=== PATIENT | female | born 1970 | race Caucasian/White ===

== ENCOUNTER 2017-11-05 03:51 | Inpatient (IN) | payer OTHER ==
[2017-11-05 04:07] VITALS: BMI 26.5
--- NOTE | 2017-11-05 04:23 | DR.GENAD ---
HPI - PCP Primary Care Physician: NFD - Complaint/Symptoms Chief Complaint Doctors Comments: Patient states that she has had constipation for one week. Today she noted blood in stool. She denies fever or vomiting. Chief Complaint:: CONSTIPATION X 1 WEEK, THEN BLOODY STOOLS LAST NIGHT NV Self Treatment fo Chief Complaint: PEPTO BISMOL - Source History Provided: Patient - Mode of Arrival Mode of Arrival: Ambulatory - Timing Onset of Chief Complaint: 11/05/17 PMH - PMH Past Medical History: Yes Past Medical History: Arthritis, Asthma, Diabetes, Migraines, Hypertension Past Surgical History: Yes Surgical History: Appendectomy, , Cholecystectomy, Hysterectomy, Ortho Surgery - Family History History of Family Medical Conditions: Yes Family Medical History: Cancer Family Medical History Comment: FATHER - Social History Does patient currently use any type of tobacco product: No Have you used tobacco products in the last 12 months: No Type of Tobacco Use: None Does any household member use tobacco: No Alcohol Use: None Do you use any recreational Drugs:: No Lives With: Spouse Lives Where: Home - infectious screening In the last 2 months have you had wt loss of >10#?: NO Have you had fever, night sweats or hemotysis?: No Have you traveled outside the country in the last 6 months?: No Isolation: Standard ROS - Review of Systems Eyes: No Symptoms Reported ENTM: No Symptoms Reported Respiratoy: No Symptoms Reported Cardiovascular: No Symptoms Reported Gastrointestinal/Abdominal: No Symptoms Reported Genitourinary: No Symptoms Reported Neurological: No Symptoms Reported Musculoskeletal: No Symptoms Reported Integumentary: No Symptoms Reported Hematologic/Lymphatic: No Symptoms Reported Endocrine: No Symptoms Reported Psychiatric: No Symptoms Reported All Other Systems: Reviewed and Negative PE - Vital Signs Vitals: Temperature 97.6 F Pulse Rate 98 Respiratory Rate 16 Blood Pressure 129/82 O2 Sat by Pulse Oximetry 97 - General Limitations: No Limitations General Appearance: Alert, In No Apparent Distress, Anxious - Head Head Exam: Normal Inspection, Atraumatic - Eyes Eye exam: PERRL, EOMI - ENT ENT Exam: Normal Exam, Normal Oropharynx External Ear Exam: Normal External Inspection TM/Canal Exam: Bilateral Normal Nose Exam: Normal Nose Exam Mouth Exam: Normal Inspection Throat Exam: Normal Inspection - Neck Neck Exam: Normal Inspection - Chest Chest Inspection: Normal Inspection - Respiratory Respiratory Exam: Normal Lung Sounds Bilat Respiratory Exam: Bilateral Clear to Auscultation - Cardiovascular Cardiovascular Exam: Regular Rate, Normal Rhythm - Abdominal Exam Abdominal Exam: Normal Inspection Abdominal Tenderness: Diffuse - Extremities Extremities Exam: Normal Inspection, Full ROM - Back Back Exam: Normal Inspection - Neurologic Neurological Exam: Alert, Oriented X3, CN II-XII Intact - Psychiatric Psychiatric Exam: Normal Affect, Normal Mood - Skin Skin Exam: Warm, Dry, Intact Course - Treatment Treatment: Morphine 4mg IV - Reevaluation 1st: Improved - Consultation Called: 06:30 ROR - Labs Reviewed Laboratory Results Reviewed?: Yes (UA: Leuk Es +1,wbc 5-10) Result Diagrams: 11/05/17 04:17 11/05/17 04:17 Laboratory: WBC 12.3 X10^3/uL (3.6-10.0) H 11/05/17 04:17 RBC 4.90 X10^6/uL (3.5-5.4) 11/05/17 04:17 Hgb 14.3 g/dL (12.0-16.0) 11/05/17 04:17 Hct 41.1 % (36.0-47.0) 11/05/17 04:17 MCV 84.0 fL (80.0-100.0) 11/05/17 04:17 MCH 29.1 pg (27.0-34.0) 11/05/17 04:17 MCHC 34.7 g/dL (33.0-35.0) 11/05/17 04:17 RDW 12.6 % (11.6-16.5) 11/05/17 04:17 Plt Count 293 X10^3/uL (150.0-450.0) 11/05/17 04:17 MPV 7.5 fL (7.4-11.0) 11/05/17 04:17 Neut % (Auto) 76.4 % (42.0-75.0) H 11/05/17 04:17 Lymph % (Auto) 14.8 % (21.0-51.0) L 11/05/17 04:17 [place] % (Auto) 7.1 % (0.0-13.0) 11/05/17 04:17 Eos % (Auto) 0.7 % (0.9-2.9) L 11/05/17 04:17 Baso % (Auto) 1.0 % (0.2-1.0) 11/05/17 04:17 Neut # (Auto) 9.4 x10^3/uL (2.2-4.8) H 11/05/17 04:17 Lymph # (Auto) 1.8 X10^3/uL (1.3-2.9) 11/05/17 04:17 [place] # (Auto) 0.9 x10^3/uL (0.3-0.8) H 11/05/17 04:17 Eos # (Auto) 0.1 x10^3/uL (0.0-0.2) 11/05/17 04:17 Baso # (Auto) 0.1 X10^3/uL (0.0-0.1) 11/05/17 04:17 Absolute Nucleated RBC 0.1 /100WBC 11/05/17 04:17 Sodium 138 mmol/L (136-145) 11/05/17 04:17 Corrected Sodium 142 mmol/L (136-145) 11/05/17 04:17 Potassium 4.2 mmol/L (3.5-5.1) 11/05/17 04:17 Chloride 99 mmol/L (98-107) 11/05/17 04:17 Carbon Dioxide 26.4 mmol/L (21-32) 11/05/17 04:17 BUN 16 mg/dL (7-18) 11/05/17 04:17 Creatinine 0.93 mg/dL (0.55-1.02) 11/05/17 04:17 Est GFR (MDRD) Af Amer > 60 (>60) 11/05/17 04:17 Est GFR (MDRD) Non-Af > 60 (>60) 11/05/17 04:17 Glucose 263 mg/dL (65-99) H 11/05/17 04:17 Calcium 8.6 mg/dL (8.5-10.1) 11/05/17 04:17 C-Reactive Protein 5.00 mg/L (0-3.0) H 11/05/17 04:17 Amylase 30 Units/L (25-115) 11/05/17 04:17 Lipase 114 Units/L (73-393) 11/05/17 04:17 Specimen Type Clean catch urine 11/05/17 05:24 Urine Color Yellow (YELLOW) 11/05/17 05:24 Urine Appearance Clear (CLEAR) 11/05/17 05:24 Urine pH 5.0 (5.0 - 8.0) 11/05/17 05:24 Ur Specific [place] 1.020 (1.000-1.030) 11/05/17 05:24 Urine Protein 2+ (NEGATIVE) 11/05/17 05:24 Urine Glucose (UA) 3+ (NEGATIVE) 11/05/17 05:24 Urine Ketones Negative (NEGATIVE) 11/05/17 05:24 Urine Occult Blood 1+ (NEGATIVE) 11/05/17 05:24 Urine Nitrite Negative (NEGATIVE) 11/05/17 05:24 Urine Bilirubin Negative (NEGATIVE) 11/05/17 05:24 Urine Urobilinogen Normal (NORMAL) 11/05/17 05:24 Ur Leukocyte Esterase 1+ (NEGATIVE) 11/05/17 05:24 Urine RBC 3-5 /HPF (NONE SEEN) 11/05/17 05:24 Urine WBC 5-10 /HPF (NONE SEEN) 11/05/17 05:24 Ur Squamous Epith Cells Moderate /HPF (NEGATIVE) 11/05/17 05:24 Urine Bacteria 1+ /HPF (NEGATIVE) 11/05/17 05:24 Ur Culture Indicated? Yes/culture set up 11/05/17 05:24 Stool Description 15g bloody mucoid 11/05/17 05:22 Stl Occult Blood (IFOB) Positive (NEGATIVE) A 11/05/17 05:22 Stool for White Cells Positive (NEGATIVE) A 11/05/17 05:22 - XRAY XRAY Interpreted by: Radiologist (Mild mural thickening and pericolonic stranding of the distal transverse and descending colon, which may be due to under distention or represent colitis,correlation recommended. Incidental 1cm nodule within right lower lobe. Recommend nonemergent CT chest for further evaluation. Hepatic steatosis .) - Diagnosis Discharge Problem: Colitis - Discharge Plan Condition: Stable - Follow ups/Referrals Follow ups/Referrals: NFD,None [Primary Care Provider] - 3 days - Instructions
[2017-11-05] MEDS ORDERED: ZOFRAN INJ 4 MG VIAL IVP ONE (04:33)
[2017-11-05] MEDS ORDERED: ZOFRAN INJ 4 MG VIAL ONE (04:34)
--- NOTE | 2017-11-05 05:10 | CT ---
CT abdomen and pelvis without contrast Indication: 'Constipation x1 week then bloody stools last night' Technique: Helical CT images of the abdomen and pelvis were obtained without IV contrast. Reformatted images in the coronal and sagittal planes were also generated for review. Comparison: None Findings: There is a 1 cm noncalcified nodule within the right lower lobe on image 2, series 3. The l eft lung base is clear. No aggressive osseous lesions are identified. Within the limits of a noncontrast exam, the liver is diffusely steatotic and mildly enlarged without gross focal lesion. The gallbladder is surgically absent. The spleen, pancreas and adrenals are unre markable. Both kidneys and visualized ureters are normal without radiopaque stones or hydroureteronep hrosis. Evaluation of the GI tract is limited without intravenous or enteric contrast. Given these limitation s, there appears to be mural thickening of the distal transverse and descending colon with minimal pe ricolonic stranding, which could simply be related to under distension or reflect colitis. The append ix is surgically absent. The remainder of the GI tract is normal without inflammation or obstruction. The IVC, abdominal aorta and collapsed urinary bladder are normal. The patient is post hysterectomy. No free air, free fluid or lymphadenopathy is identified Impression: Mild mural thickening and pericolonic stranding of the distal transverse and descending colon, which may be due to under distention or represent colitis. Correlation recommended. Incidental 1 cm nodule within right lower lobe. Recommend nonemergent CT chest for further evaluation . Hepatic steatosis and additional incidental findings, as above. Reported By:
[2017-11-05] MEDS ORDERED: MORPHINE SULFATE INJ 4 MG IVP ONE (05:28)
[2017-11-05] MEDS ORDERED: MORPHINE SULFATE INJ 4 MG ONE ×2 (05:29→08:18)
[2017-11-05 05:36] LABS: BASOPHILS # (AUTO) 0.1 X10^3/uL (0.0-0.1); BLOOD UREA NITROGEN 16 mg/dL (7-18); CALCIUM 8.6 mg/dL (8.5-10.1); CARBON DIOXIDE 26.4 mmol/L (21-32); CHLORIDE 99 mmol/L (98-107); COR NA(FOR HYPERGLY) 142 mmol/L (136-145); CREATININE 0.93 mg/dL (0.55-1.02); EOSINOPHILS # (AUTO) 0.1 x10^3/uL (0.0-0.2); EOSINOPHILS % (AUTO) 0.7 % (0.9-2.9); HEMATOCRIT 41.1 % (36.0-47.0); HEMOGLOBIN 14.3 g/dL (12.0-16.0); LYMPHOCYTES # (AUTO) 1.8 X10^3/uL (1.3-2.9); LYMPHOCYTES % (AUTO) 14.8 % (21.0-51.0); MEAN CORPUSCULAR HEMOGLOBIN 29.1 pg (27.0-34.0); MEAN CORPUSCULAR HGB CONC 34.7 g/dL (33.0-35.0); MEAN PLATELET VOLUME 7.5 fL (7.4-11.0); MONOCYTES # (AUTO) 0.9 x10^3/uL (0.3-0.8); MONOCYTES % (AUTO) 7.1 % (0.0-13.0); NEUTROPHILS # (AUTO) 9.4 x10^3/uL (2.2-4.8); NEUTROPHILS % (AUTO) 76.4 % (42.0-75.0); PLATELET COUNT 293 X10^3/uL (150.0-450.0); RED CELL DISTRIBUTION WIDTH 12.6 % (11.6-16.5); SODIUM 138 mmol/L (136-145); WHITE BLOOD COUNT 12.3 X10^3/uL (3.6-10.0); eGFR BLACK RACES > 60 (>60); eGFR NON BLACK RACES > 60 (>60)
[2017-11-05 05:42] LABS: AMYLASE 30 Units/L (25-115); LIPASE 114 Units/L (73-393)
[2017-11-05 05:57] LABS: BILIRUBIN,URINE NEGATIVE (NEGATIVE); BLOOD/HEMOGLOBIN,URINE 1+ (NEGATIVE); GLUCOSE, URINE 3+ (NEGATIVE); KETONES,URINE NEGATIVE (NEGATIVE); LEUKOCYTE ESTERASE ,URINE 1+ (NEGATIVE); NITRITES,URINE NEGATIVE (NEGATIVE); PROTEIN,URINE 2+ (NEGATIVE); UROBILINOGEN,URINE NORMAL (NORMAL)
[2017-11-05 05:59] LABS: STOOL FOR WBC POSITIVE (NEGATIVE)
[2017-11-05] MEDS ORDERED: NS 1000 ML 1,000 ML IV SCH (06:00)
[2017-11-05 06:09] LABS: APPEARANCE,URINE CLEAR (CLEAR); COLOR,URINE YELLOW (YELLOW); SQUAMOUS EPITHELIAL CELL,UR MODERATE /HPF (NEGATIVE)
[2017-11-05 06:10] LABS: BACTERIA,URINE 1+ /HPF (NEGATIVE)
[2017-11-05] MEDS: FLAGYL IV PREMIX 500 MG BAG 500 MG/100 ML BAG IV SCH ×4 (07:02→20:11)
[2017-11-05] MEDS ORDERED: IMIPRAMINE HCL 50 MG PO SCH (07:30)
[2017-11-05] MEDS ORDERED: HYDROCHLOROTHIAZIDE 25 MG TAB PO SCH (08:00)
[2017-11-05] MEDS ORDERED: ZESTRIL TAB 20 MG PO SCH (08:00)
[2017-11-05] MEDS ORDERED: NEURONTIN CAP 300 MG PO SCH ×2 (08:00→09:00)
[2017-11-05] MEDS: MORPHINE SULFATE INJ 4 MG IVP PRN ×2 (08:26→20:12)
[2017-11-05] MEDS: TOPIRAMATE 100 MG PO SCH ×2 (09:16→20:35)
[2017-11-05] MEDS ORDERED: ZESTRIL TAB 20 MG ONE (09:24)
[2017-11-05] MEDS: LOVAZA PO SCH (09:34)
[2017-11-05] MEDS: HYDROCHLOROTHIAZIDE 25 MG TAB PO SCH (09:34)
[2017-11-05] MEDS: NEURONTIN CAP 400 MG PO SCH ×2 (09:34→12:24)
[2017-11-05] MEDS: CLARITIN PO SCH (09:34)
[2017-11-05] MEDS: ZESTRIL TAB 20 MG PO SCH (09:34)
[2017-11-05] MEDS: ZEBETA TAB 5 MG PO SCH (09:34)
[2017-11-05] MEDS: ZOFRAN INJ 4 MG VIAL IVP PRN ×2 (10:18→20:12)
[2017-11-05] MEDS ORDERED: PROVENTIL NEB TX 0.083% 2.5MG/ 3ML NEB PRN (10:25)
[2017-11-05] MEDS ORDERED: PATIENT'S HOME MEDICATION (Metformin Hcl [Metformin Hcl] 1 TAB) PO SCH (10:30)
[2017-11-05] MEDS: PROVENTIL NEB TX 0.083% 2.5MG/ 3ML NEB SCH ×3 (14:01→22:45)
[2017-11-05] MEDS: BENTYL CAP 10 MG PO SCH ×2 (14:10→20:11)
[2017-11-05] MEDS: PHENERGAN INJ 25 MG IV PRN ×2 (14:11→22:41)
[2017-11-05] MEDS: NS 1000 ML 1,000 ML with POTASSIUM CHLORIDE INJ 20 MEQ VIAL 20 MEQ IV SCH ×2 (15:35)
[2017-11-05] MEDS ORDERED: GLUCOPHAGE ONE (17:05)
[2017-11-05] MEDS: GLUCOPHAGE PO SCH (17:14)
[2017-11-05] MEDS: SNACK - Diabetic Appropriate PO SCH (20:10)
[2017-11-05] MEDS: IMIPRAMINE HCL 50 MG PO SCH (20:26)
[2017-11-05] MEDS: HumuLIN R SUBCUT PRN (20:33)
[2017-11-06] MEDS: NS 1000 ML 1,000 ML with POTASSIUM CHLORIDE INJ 20 MEQ VIAL 20 MEQ IV SCH ×8 (01:10→20:47)
[2017-11-06] MEDS: FLAGYL IV PREMIX 500 MG BAG 500 MG/100 ML BAG IV SCH ×4 (02:41→20:09)
[2017-11-06] MEDS: ZOFRAN INJ 4 MG VIAL IVP PRN ×2 (04:02→13:05)
[2017-11-06] MEDS ORDERED: GLUCOPHAGE ONE ×2 (05:20→16:46)
[2017-11-06 05:50] LABS: BASOPHILS # (AUTO) 0.1 X10^3/uL (0.0-0.1); BASOPHILS % (AUTO) 0.9 % (0.2-1.0); EOSINOPHILS # (AUTO) 0.1 x10^3/uL (0.0-0.2); EOSINOPHILS % (AUTO) 1.2 % (0.9-2.9); HEMATOCRIT 37.6 % (36.0-47.0); HEMOGLOBIN 13.1 g/dL (12.0-16.0); LYMPHOCYTES # (AUTO) 2.7 X10^3/uL (1.3-2.9); LYMPHOCYTES % (AUTO) 23.1 % (21.0-51.0); MEAN CORPUSCULAR HEMOGLOBIN 29.1 pg (27.0-34.0); MEAN CORPUSCULAR HGB CONC 34.8 g/dL (33.0-35.0); MEAN CORPUSCULAR VOLUME 83.5 fL (80.0-100.0); MEAN PLATELET VOLUME 7.5 fL (7.4-11.0); MONOCYTES # (AUTO) 0.9 x10^3/uL (0.3-0.8); MONOCYTES % (AUTO) 7.9 % (0.0-13.0); NEUTROPHILS # (AUTO) 7.8 x10^3/uL (2.2-4.8); NEUTROPHILS % (AUTO) 66.9 % (42.0-75.0); PLATELET COUNT 244 X10^3/uL (150.0-450.0); RED CELL DISTRIBUTION WIDTH 12.9 % (11.6-16.5); WHITE BLOOD COUNT 11.7 X10^3/uL (3.6-10.0)
[2017-11-06] MEDS: GLUCOPHAGE PO SCH ×2 (06:05→16:53)
[2017-11-06 06:22] LABS: ALANINE AMINOTRANSFERASE 46 Units/L (12-78); ALBUMIN 3.5 g/dL (3.4-5.0); ALKALINE PHOSPHATASE 65 Units/L (46-116); ASPARTATE AMINO TRANSFERASE 20 Units/L (15-37); BLOOD UREA NITROGEN 8 mg/dL (7-18); CARBON DIOXIDE 25.8 mmol/L (21-32); CHLORIDE 103 mmol/L (98-107); COR NA(FOR HYPERGLY) 140 mmol/L (136-145); CREATININE 0.73 mg/dL (0.55-1.02); SODIUM 138 mmol/L (136-145); TOTAL PROTEIN 6.6 g/dL (6.4-8.2); eGFR BLACK RACES > 60 (>60); eGFR NON BLACK RACES > 60 (>60)
--- NOTE | 2017-11-06 06:30 | CT ---
CT chest with contrast Indication: Follow-up pulmonary nodule Comparison: 11/05/2017 Technique: Multiple axial images of the chest were obtained from the thoracic inlet to the upper abdo men after the administration of IV contrast. Findings: The thyroid gland is unremarkable. Heart size is normal. No pericardial effusion. The thoracic aorta is normal in caliber and contour. Arch vessels are normal in configuration. No enlarged mediastinal o r hilar lymphadenopathy. There is approximate 8 mm nodule within the right lower lobe adjacent to the right major fissure on axial image 30. There is an approximate 14 mm nodule within the right lower l obe on axial image 37. The remaining lungs are clear. No pleural effusion or pneumothorax. No adenopa thy within the mediastinum or hilum. Review of bone windows demonstrates no acute osseous abnormality . There is moderate hepatic steatosis. There is moderate amount of thickening of the proximal descend ing colon, bowel wall thickening is asymmetric raising the concern for underlying colonic neoplasm or potentially severe focal acute colitis. Review of bone windows demonstrates no acute osseous abnorma lity. Impression: 1. Two pulmonary nodules within the right lower lobe suspicious for pulmonary malignancy/metastatic d isease. Correlation with PET-CT is recommended for further characterization. 2. Homogeneous, segmental thickening of the proximal descending colon may represent colitis however c linical correlation and potentially colonoscopy is recommended as underlying colonic neoplasm is not excluded. 3. Hepatic steatosis. Reported By:
[2017-11-06] MEDS ORDERED: ZESTRIL TAB 20 MG ONE (08:32)
[2017-11-06] MEDS: PROVENTIL NEB TX 0.083% 2.5MG/ 3ML NEB SCH ×4 (08:35→20:39)
[2017-11-06] MEDS: BENTYL CAP 10 MG PO SCH ×2 (08:54→20:08)
[2017-11-06] MEDS: CLARITIN PO SCH (08:55)
[2017-11-06] MEDS: HYDROCHLOROTHIAZIDE 25 MG TAB PO SCH (08:55)
[2017-11-06] MEDS: LOVAZA PO SCH (08:55)
[2017-11-06] MEDS: ZEBETA TAB 5 MG PO SCH (08:56)
[2017-11-06] MEDS: ZESTRIL TAB 20 MG PO SCH (08:56)
[2017-11-06] MEDS: TOPIRAMATE 100 MG PO SCH ×2 (08:56→20:09)
[2017-11-06] MEDS: MORPHINE SULFATE INJ 4 MG IVP PRN (09:05)
[2017-11-06] MEDS: PHENERGAN INJ 25 MG IV PRN ×2 (09:06→17:55)
[2017-11-06] MEDS: HumuLIN R SUBCUT PRN (11:52)
[2017-11-06] MEDS ORDERED: DEMEROL INJ ONE (13:02)
[2017-11-06] MEDS: DEMEROL INJ IVP PRN ×2 (13:05→20:10)
[2017-11-06] MEDS: SNACK - Diabetic Appropriate PO SCH (20:08)
[2017-11-06] MEDS: IMIPRAMINE HCL 50 MG PO SCH (20:09)
[2017-11-06] MEDS: NEURONTIN CAP 300 MG PO SCH (21:10)
--- NOTE | 2017-11-06 21:33 | DR.H&P ---
H&P - History & Physical for Day of: H&P Date: 11/05/17 - Chief Complaint Chief Complaint: abdominal pain, blood in stools - Allergies Allergies/Adverse Reactions: Allergies Allergy/AdvReac Type Severity Reaction Status Date / Time amoxicillin Allergy Verified 11/05/17 07:08 cephalexin [From Keflex] Allergy Verified 11/05/17 07:08 ibuprofen [From Motrin] Allergy Verified 11/05/17 07:08 naproxen [From Aleve] Allergy Verified 11/05/17 07:08 Penicillins Allergy Verified 11/05/17 07:08 Sulfa (Sulfonamide Allergy Verified 11/05/17 07:08 Antibiotics) [SULFA] - History of Present Illness History of Present Illness: is a 47 year old patient of Alyssa Palencia who presented to the emergency room with reports of constipation and bloody stools. Patient reports that constipation started one week ago and bloody stools started last night. Associated symptoms include abdominal pain which she rates pain as an 8/10, nausea, and vomiting. Patient states she has been taking Pepto Bismal since symptoms started with no relief in symptoms. On arrival, vitals were 97.6-98-16-97%-129/82. Labs were obtained. Abnormal labs include the following: WBC 12.3, Glucose 263, CRP 5.00. Urinalysis: Protein 2+, Glucose 3+, Occult Blood 1+, Leuk Est 1+, RBC 3-5, WBC 5-10, Bacteria 1+, Culture Pending. Stool Occult Blood Positive; Stool WBC Positive. An abdomen and pelvis CT obtained which revealed mild mural thickening and pericolonic stranding of the distal transverse and descending colon, which may be due to under distention or represent colitis. Incidental 1cm nodule within right lower lobe. Recommend non-emergent CT chest for further evaluation. Hepatic steatosis and additional incidental findings. Patient admitted to the hosptial and started on IV antibiotics as well as pain and nausea control. We will obtain a chest CT with contrast. Otherwise, we plan to follow up with AM labs and continue to monitor patient. - Past Medical History Past Medical History: Arthritis, Asthma, Diabetes, Migraines, Hypertension - Past Surgical History Surgical History: Cholecystectomy, Hysterectomy, Other - Family History Family Medical History: Diabetes Mellitus, Cancer, OR, Hypertension - Social History Does patient currently use any type of tobacco product: No Have you used tobacco products in the last 12 months: No Type of Tobacco Use: None Does any household member use tobacco: No Alcohol Use: None Drug Use: None - Medications Home Medications: Albuterol Neb 2.5MG/ 3Ml [ALBUTEROL NEB 2.5MG/ 3ML *] 1 vial INH Q4H PRN [History Confirmed 11/05/17] Aspirin EC [ASPIRIN EC 81 MG *] 1 tab PO DAILY 11/05/17 [History Confirmed 11/05] Biotin 1 cap PO DAILY 11/05/17 [History Confirmed 11/05/17] Cholecalciferol [Vitamin D3] 1 cap PO DAILY 11/05/17 [History Confirmed 11/05/17 ] Esomeprazole Magnesium [NEXIUM 40 MG *] 1 cap PO DAILY 11/05/17 [History Confirmed 11/05/17] Fluticasone Nasal [place] [FLONASE NASAL SPRAY *] 2 inh INH DAILY 11/05/17 [ History Confirmed 11/05/17] Gabapentin 1 cap PO TID 11/05/17 [History Confirmed 11/05/17] Gabapentin 2 cap PO TID 11/05/17 [History Confirmed 11/05/17] Gabapentin 300 mg PO ONCE 11/05/17 [History Confirmed 11/05/17] Gabapentin [Neurontin] 800 mg PO ACHS 11/05/17 [History Confirmed 11/05/17] Hydrochlorothiazide 25 mg PO ONCE 11/05/17 [History Confirmed 11/05/17] Hydrochlorothiazide [HYDROCHLOROTHIAZIDE 25 MG TAB *] 1 tab PO DAILY 11/05/17 [ History Confirmed 11/05/17] Imipramine HCl 50 mg PO HS 11/05/17 [History Confirmed 11/05/17] Lisinopril 20 mg PO DAILY 11/05/17 [History Confirmed 11/05/17] Loratadine 10 mg PO DAILY 11/05/17 [History Confirmed 11/05/17] Metformin HCl 1 tab PO BID 11/05/17 [History Confirmed 11/05/17] Misc Home Med [Patient's Home Medication] 1 cap PO DAILY 11/05/17 [History Confirmed 11/05/17] Misc Home Med [Patient's Home Medication] 1 cap PO DAILY 11/05/17 [History Confirmed 11/05/17] Misc Home Med [Patient's Home Medication] 450 mg PO DAILY 11/05/17 [History Confirmed 11/05/17] Misc Home Med [Patient's Home Medication] 520 mg PO DAILY 11/05/17 [History Confirmed 11/05/17] Multivit-Min/Iron Fum/Folic AC [Wqbrd-Fdgdeyq-Fyeexijw Tablet] 1 tab PO DAILY [History Confirmed 11/05/17] Nebivolol HCl [Bystolic] 1 tab PO DAILY 11/05/17 [History Confirmed 11/05/17] Nebivolol HCl [Bystolic] 5 mg PO ONCE 11/05/17 [History Confirmed 11/05/17] [place]-3 Fatty Acids/Fish Oil [[place] 3] 1,000 mg PO ONCE 11/05/17 [History Confirmed 11/05/17] Topiramate [Trokendi XR] 100 mg PO BID 11/05/17 [History Confirmed 11/05/17] Turmeric/Turmeric Root Extract [Turmeric 500 mg Capsule] 1 cap PO DAILY [History Confirmed 11/05/17] Vitamin E 1 cap PO DAILY 11/05/17 [History Confirmed 11/05/17] - Review of Systems Constitutional: Weakness Eyes: No Symptoms Reported ENT: No Symptoms Reported Respiratory: No Symptoms Reported. denies: Shortness of Breath, Sputum, Wheezing Cardiovascular: No Symptoms Reported. denies: Chest Pain, Edema, Light Headedness Gastrointestinal: See HPI, Nausea, Vomiting, Abdominal Pain, Constipation, Hematochezia. denies: Diarrhea Genitourinary: No Symptoms Reported Musculoskeletal: No Symptoms Reported Skin: No Symptoms Reported Neurological: Weakness - Physical Exam Vital Signs: Temperature 98.5 F Pulse Rate [Right Brachial] 86 Pulse Rate [Left Radial] 84 Pulse Rate 82 Respiratory Rate 18 Blood Pressure [Right Arm] 131/87 Blood Pressure [Left Arm] 173/85 Blood Pressure 129/82 O2 Sat by Pulse Oximetry 95 Oriented: Normal Eyes: Normal Ear: Normal Nose: Normal Throat: Normal Respiratory: Clear Throughout Cardiovascular: Normal : Normal Auscultation: Bowel Sounds: Decreased Palpation: Normal Tenderness: Diffuse, Moderate. negative: Rebound, Guarding, Rigidity Skin: Normal Musculoskeletal: Normal Psychiatric: Normal Mood Description: Calm Affect: Normal Speech Pattern: Clear - Assessment/Plan (1) Colitis Status: Acute Plan: FLAGYL 500MG IV Q6H, BENTYL 20MG PO BID, MORPHINE PRN, PHENERGAN 12.5MG IV Q6H, ZOFRAN 4MG IV Q8H PRN, CONTINUE TO MONITOR
[2017-11-07] MEDS: DEMEROL INJ IVP PRN ×5 (00:10→20:33)
[2017-11-07] MEDS: PHENERGAN INJ 25 MG IV PRN ×3 (00:11→16:04)
[2017-11-07] MEDS: NS 1000 ML 1,000 ML with POTASSIUM CHLORIDE INJ 20 MEQ VIAL 20 MEQ IV SCH ×6 (01:13→18:30)
[2017-11-07] MEDS: FLAGYL IV PREMIX 500 MG BAG 500 MG/100 ML BAG IV SCH ×4 (02:07→20:31)
[2017-11-07] MEDS ORDERED: GLUCOPHAGE ONE (04:25)
[2017-11-07] MEDS: NEURONTIN CAP 300 MG PO SCH ×3 (05:18→21:38)
[2017-11-07 05:59] LABS: BASOPHILS # (AUTO) 0.1 X10^3/uL (0.0-0.1); BASOPHILS % (AUTO) 0.7 % (0.2-1.0); EOSINOPHILS # (AUTO) 0.2 x10^3/uL (0.0-0.2); EOSINOPHILS % (AUTO) 2.6 % (0.9-2.9); HEMATOCRIT 33.1 % (36.0-47.0); HEMOGLOBIN 11.7 g/dL (12.0-16.0); LYMPHOCYTES % (AUTO) 32.4 % (21.0-51.0); MEAN CORPUSCULAR HEMOGLOBIN 29.4 pg (27.0-34.0); MEAN CORPUSCULAR HGB CONC 35.3 g/dL (33.0-35.0); MEAN CORPUSCULAR VOLUME 83.3 fL (80.0-100.0); MEAN PLATELET VOLUME 7.4 fL (7.4-11.0); MONOCYTES # (AUTO) 0.7 x10^3/uL (0.3-0.8); NEUTROPHILS # (AUTO) 5.2 x10^3/uL (2.2-4.8); NEUTROPHILS % (AUTO) 56.3 % (42.0-75.0); PLATELET COUNT 216 X10^3/uL (150.0-450.0); RED BLOOD COUNT 3.98 X10^6/uL (3.5-5.4); RED CELL DISTRIBUTION WIDTH 12.6 % (11.6-16.5); WHITE BLOOD COUNT 9.2 X10^3/uL (3.6-10.0)
[2017-11-07] MEDS: GLUCOPHAGE PO SCH ×2 (06:01→16:03)
[2017-11-07] MEDS: HumuLIN R SUBCUT PRN ×2 (06:01→11:30)
[2017-11-07 06:26] LABS: ALANINE AMINOTRANSFERASE 33 Units/L (12-78); ALKALINE PHOSPHATASE 65 Units/L (46-116); ASPARTATE AMINO TRANSFERASE 16 Units/L (15-37); BLOOD UREA NITROGEN 6 mg/dL (7-18); CALCIUM 7.7 mg/dL (8.5-10.1); CARBON DIOXIDE 25.9 mmol/L (21-32); CHLORIDE 104 mmol/L (98-107); COR CA(FOR HYPOALB) 8.5 mg/dL (8.5-10.1); COR NA(FOR HYPERGLY) 141 mmol/L (136-145); CREATININE 0.59 mg/dL (0.55-1.02); SODIUM 140 mmol/L (136-145); TOTAL PROTEIN 5.9 g/dL (6.4-8.2); eGFR BLACK RACES > 60 (>60); eGFR NON BLACK RACES > 60 (>60)
[2017-11-07] MEDS ORDERED: ZESTRIL TAB 20 MG ONE (07:54)
[2017-11-07] MEDS: BENTYL CAP 10 MG PO SCH ×2 (08:28→20:31)
[2017-11-07] MEDS: CLARITIN PO SCH (08:29)
[2017-11-07] MEDS: FLONASE NASAL SPRAY ENOSTRIL SCH (08:29)
[2017-11-07] MEDS: HYDROCHLOROTHIAZIDE 25 MG TAB PO SCH (08:29)
[2017-11-07] MEDS: ZEBETA TAB 5 MG PO SCH (08:30)
[2017-11-07] MEDS: TOPIRAMATE 100 MG PO SCH ×2 (08:30→20:32)
[2017-11-07] MEDS: ZESTRIL TAB 20 MG PO SCH (08:30)
[2017-11-07] MEDS: LOVAZA PO SCH (08:30)
[2017-11-07] MEDS: NexIUM PO SCH (08:30)
[2017-11-07] MEDS: TAB-A-VITE PO SCH (08:30)
[2017-11-07] MEDS: PROVENTIL NEB TX 0.083% 2.5MG/ 3ML NEB SCH ×4 (09:56→21:19)
[2017-11-07] MEDS: ZOFRAN INJ 4 MG VIAL IVP PRN (14:01)
--- NOTE | 2017-11-07 14:28 | CT ---
HISTORY: Nasal congestion, headache Study: CT paranasal sinuses without contrast Comparison: None Technique: Multiple axial images of the paranasal sinuses were obtained without the administration of IV contrast. Coronal and sagittal reformats were performed and reviewed. Findings: Mild mucosal thickening of the right maxillary sinus is noted. Mild mucosal thickening of the ethmoid air cells is also noted. The nasal septum is deviated slightly to the right. The ostiomeatal compl exes appear to be patent bilaterally. Nasal turbinate hypertrophy is noted bilaterally right greater than left. The visualized portions of the posterior fossa and intracranial structures are unremarkab le as well. IMPRESSION: Mild mucosal thickening of the ethmoid air cells and right maxillary sinus. Nasal turbinate hypertrophy right greater than left. Reported By:
[2017-11-07] MEDS: SNACK - Diabetic Appropriate PO SCH (20:30)
[2017-11-07] MEDS: IMIPRAMINE HCL 50 MG PO SCH (20:31)
[2017-11-07] MEDS ORDERED: DECADRON JET NEB (RESP USE) NEB ONE (21:08)
[2017-11-08] MEDS: FLAGYL IV PREMIX 500 MG BAG 500 MG/100 ML BAG IV SCH ×4 (02:23→20:52)
[2017-11-08] MEDS: NEURONTIN CAP 300 MG PO SCH ×3 (05:10→20:45)
[2017-11-08] MEDS: NS 1000 ML 1,000 ML with POTASSIUM CHLORIDE INJ 20 MEQ VIAL 20 MEQ IV SCH ×4 (05:15→09:19)
[2017-11-08 06:00] LABS: ALANINE AMINOTRANSFERASE 35 Units/L (12-78); ALBUMIN 3.1 g/dL (3.4-5.0); ALKALINE PHOSPHATASE 56 Units/L (46-116); ASPARTATE AMINO TRANSFERASE 22 Units/L (15-37); BLOOD UREA NITROGEN 7 mg/dL (7-18); CALCIUM 8.1 mg/dL (8.5-10.1); CARBON DIOXIDE 28.4 mmol/L (21-32); CHLORIDE 104 mmol/L (98-107); COR CA(FOR HYPOALB) 8.8 mg/dL (8.5-10.1); COR NA(FOR HYPERGLY) 142 mmol/L (136-145); CREATININE 0.65 mg/dL (0.55-1.02); SODIUM 141 mmol/L (136-145); TOTAL PROTEIN 5.9 g/dL (6.4-8.2); eGFR BLACK RACES > 60 (>60); eGFR NON BLACK RACES > 60 (>60)
[2017-11-08 06:03] LABS: BASOPHILS # (AUTO) 0.1 X10^3/uL (0.0-0.1); EOSINOPHILS # (AUTO) 0.3 x10^3/uL (0.0-0.2); EOSINOPHILS % (AUTO) 4.3 % (0.9-2.9); HEMATOCRIT 32.3 % (36.0-47.0); HEMOGLOBIN 11.2 g/dL (12.0-16.0); LYMPHOCYTES % (AUTO) 44.5 % (21.0-51.0); MEAN CORPUSCULAR HEMOGLOBIN 29.3 pg (27.0-34.0); MEAN CORPUSCULAR HGB CONC 34.9 g/dL (33.0-35.0); MEAN PLATELET VOLUME 7.3 fL (7.4-11.0); MONOCYTES # (AUTO) 0.5 x10^3/uL (0.3-0.8); MONOCYTES % (AUTO) 7.3 % (0.0-13.0); NEUTROPHILS # (AUTO) 2.8 x10^3/uL (2.2-4.8); NEUTROPHILS % (AUTO) 42.9 % (42.0-75.0); PLATELET COUNT 234 X10^3/uL (150.0-450.0); RED BLOOD COUNT 3.84 X10^6/uL (3.5-5.4); RED CELL DISTRIBUTION WIDTH 12.5 % (11.6-16.5); WHITE BLOOD COUNT 6.6 X10^3/uL (3.6-10.0)
[2017-11-08] MEDS: GLUCOPHAGE PO SCH ×2 (06:10→17:06)
[2017-11-08] MEDS: TOPIRAMATE 100 MG PO SCH (08:20)
[2017-11-08] MEDS: PHENERGAN INJ 25 MG IV PRN ×2 (08:29→17:38)
[2017-11-08] MEDS ORDERED: ZESTRIL TAB 20 MG ONE (08:55)
[2017-11-08] MEDS: TAB-A-VITE PO SCH (09:17)
[2017-11-08] MEDS: ZEBETA TAB 5 MG PO SCH (09:17)
[2017-11-08] MEDS: NexIUM PO SCH (09:17)
[2017-11-08] MEDS: HYDROCHLOROTHIAZIDE 25 MG TAB PO SCH (09:17)
[2017-11-08] MEDS: LOVAZA PO SCH (09:17)
[2017-11-08] MEDS: CLARITIN PO SCH (09:17)
[2017-11-08] MEDS: ZESTRIL TAB 20 MG PO SCH (09:17)
[2017-11-08] MEDS: BENTYL CAP 10 MG PO SCH ×2 (09:17→20:51)
[2017-11-08] MEDS: FLONASE NASAL SPRAY ENOSTRIL SCH (09:18)
[2017-11-08] MEDS: DEMEROL INJ IVP PRN ×2 (09:25→19:59)
[2017-11-08] MEDS: PROVENTIL NEB TX 0.083% 2.5MG/ 3ML NEB SCH ×4 (12:00→21:38)
[2017-11-08] MEDS: NS + KCL 20 MEQ/L 1,000 ML IV SCH ×2 (13:26→20:46)
[2017-11-08] MEDS: SNACK - Diabetic Appropriate PO SCH (20:40)
[2017-11-08] MEDS: IMIPRAMINE HCL 50 MG PO SCH (20:50)
--- NOTE | 2017-11-08 20:52 | PCM.PROG ---
Progress Note - Progress Note for Day of Date: 11/06/17 - Subjective Subjective: IS BEING TREATED FOR COLITIS. AN INCIDENTAL 1CM NODULE WITHIN THE RIGHT LOWER LOBE WAS ALSO FOUND. TODAY, SHE IS ALERT AND ORIENTED, LYING IN BED ON MORNING ROUNDS. SPOUSE AT BEDSIDE. SHE CONTINUES WITH COMPLAINTS OF DIFFUSE ABDOMINAL PAIN. SHE ALSO REPORTS NAUSEA AND CONTINUES WITH LOOSE, DARK BOWEL MOVEMENTS. ON EXAMINATION, HEART IS REGULAR IN RATE AND RHYTHM. BILATERAL LUNGS ARE CLEAR TO AUSCULTATION. ABDOMEN IS ROUND, SOFT, AND NOTED WITH MODERATE, DIFFUSE TENDERNESS TO PALPATION. HYPERACTIVE BOWEL SOUNDS ARE NOTED TO ALL QUADRANTS. THERE IS NORMAL RANGE OF MOTION NOTED TO ALL EXTREMITIES. HER VITALS THIS MORNING ARE 98.5-92-18-97%-159/94. LABS WERE OBTAINED. ABNORMAL LAB VALUES INCLUDE THE FOLLOWING: WBC 11.7, GLUCOSE 197, CALCIUM 8.0. 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 OTHERWISE, WE WILL CONTINUE IV ANTIBIOTICS AND CURRENT PLAN OF CARE FOR COLITIS. WE WILL DISCONTINUE THE MORPHINE AND START DEMEROL 25MG IV Q4H PRN PAIN. OTHERWISE, WE WILL FOLLOW UP WITH AM LABS AND CONTINUE TO MONITOR PATIENT. - Past Medical Family Social History Past Med/Fam/Surg Hx: No changes since H&P Allergies: Allergies amoxicillin Allergy (Verified 11/05/17 07:08) cephalexin [From Keflex] Allergy (Verified 11/05/17 07:08) ibuprofen [From Motrin] Allergy (Verified 11/05/17 07:08) naproxen [From Aleve] Allergy (Verified 11/05/17 07:08) Penicillins Allergy (Verified 11/05/17 07:08) Sulfa (Sulfonamide Antibiotics) [SULFA] Allergy (Verified 11/05/17 07:08) - Review of Systems ROS: No change since H&P - Vital Signs and I&O's Vital Signs: Temperature 97.7 F Pulse Rate [Right Brachial] 69 Pulse Rate [Left Radial] 84 Pulse Rate 65 Respiratory Rate 20 Blood Pressure [Right Arm] 119/73 Blood Pressure [Left Arm] 173/85 Blood Pressure 129/82 O2 Sat by Pulse Oximetry 95 Intake and Output: Intake & Output 11/06/17 11/07/17 11/08/17 11/09/17 11:59 11:59 11:59 11:59 Intake Total 2992 4047 4355 700 Balance 2992 4047 4355 700 - Physical Exam Oriented: Normal Eyes: Normal Ear: Normal Nose: Normal Throat: Normal Respiratory: Normal Cardiovascular: Normal : Normal Auscultation: Bowel Sounds: Increased Palpation: Normal Tenderness: Diffuse, Moderate. negative: Rebound, Guarding, Rigidity Skin: Normal Musculoskeletal: Normal Psychiatric: Normal Mood Description: Calm Affect: Normal Speech Pattern: Clear - Laboratory and Diagnostics Result Diagrams: 11/08/17 04:29 11/08/17 04:29 Labs: 11/05/17 05:24 Urine,Clean Catch Urine Culture - Final Laboratory WBC 6.6 X10^3/uL (3.6-10.0) 11/08/17 04: RBC 3.84 X10^6/uL (3.5-5.4) 11/08/17 04:29 Hgb 11.2 g/dL (12.0-16.0) L 11/08/17 04: Hct 32.3 % (36.0-47.0) L 11/08/17 04: MCV 84.0 fL (80.0-100.0) 11/08/17 04:29 MCH 29.3 pg (27.0-34.0) 11/08/17 04: MCHC 34.9 g/dL (33.0-35.0) 11/08/17 04:29 RDW 12.5 % (11.6-16.5) 11/08/17 04: Plt Count 234 X10^3/uL (150.0-450.0) 11/08/17 04:29 MPV 7.3 fL (7.4-11.0) L 11/08/17 04:29 Neut % (Auto) 42.9 % (42.0-75.0) 11/08/17 04: Lymph % (Auto) 44.5 % (21.0-51.0) 11/08/17 04:29 [place] % (Auto) 7.3 % (0.0-13.0) 11/08/17 04:29 Eos % (Auto) 4.3 % (0.9-2.9) H 11/08/17 04:29 Baso % (Auto) 1.0 % (0.2-1.0) 11/08/17 04:29 Neut # (Auto) 2.8 x10^3/uL (2.2-4.8) 11/08/17 04:29 Lymph # (Auto) 3.0 X10^3/uL (1.3-2.9) H 11/08/17 04:29 [place] # (Auto) 0.5 x10^3/uL (0.3-0.8) 11/08/17 04:29 Eos # (Auto) 0.3 x10^3/uL (0.0-0.2) H 11/08/17 04:29 Baso # (Auto) 0.1 X10^3/uL (0.0-0.1) 11/08/17 04:29 Absolute Nucleated RBC 0.1 /100WBC 11/08/17 04:29 Sodium 141 mmol/L (136-145) 11/08/17 04:29 Corrected Sodium 142 mmol/L (136-145) 11/08/17 04:29 Potassium 3.6 mmol/L (3.5-5.1) 11/08/17 04:29 Chloride 104 mmol/L (98-107) 11/08/17 04:29 Carbon Dioxide 28.4 mmol/L (21-32) 11/08/17 04:29 BUN 7 mg/dL (7-18) 11/08/17 04:29 Creatinine 0.65 mg/dL (0.55-1.02) 11/08/17 04:29 Est GFR (MDRD) Af Amer > 60 (>60) 11/08/17 04:29 Est GFR (MDRD) Non-Af > 60 (>60) 11/08/17 04:29 Glucose 133 mg/dL (65-99) H 11/08/17 04:29 POC Glucose (mg/dL) 171 mg/dL (65-99) H 11/08/17 17:12 Calcium 8.1 mg/dL (8.5-10.1) L 11/08/17 04:29 Corrected Calcium 8.8 mg/dL (8.5-10.1) 11/08/17 04:29 Total Bilirubin 0.30 mg/dL (0.2-1.0) 11/08/17 04:29 AST 22 Units/L (15-37) 11/08/17 04:29 ALT 35 Units/L (12-78) 11/08/17 04:29 Alkaline Phosphatase 56 Units/L (46-116) 11/08/17 04:29 C-Reactive Protein 5.00 mg/L (0-3.0) H 11/05/17 04:17 Total Protein 5.9 g/dL (6.4-8.2) L 11/08/17 04:29 Albumin 3.1 g/dL (3.4-5.0) L 11/08/17 04:29 Globulin 2.8 g/dL (2.5-4.5) 11/08/17 04:29 Albumin/Globulin Ratio 1.1 Ratio (1.1-2.1) 11/08/17 04:29 Amylase 30 Units/L (25-115) 11/05/17 04:17 Lipase 114 Units/L (73-393) 11/05/17 04:17 Specimen Type Clean catch urine 11/05/17 05:24 Urine Color Yellow (YELLOW) 11/05/17 05:24 Urine Appearance Clear (CLEAR) 11/05/17 05:24 Urine pH 5.0 (5.0 - 8.0) 11/05/17 05:24 Ur Specific [place] 1.020 (1.000-1.030) 11/05/17 05:24 Urine Protein 2+ (NEGATIVE) 11/05/17 05:24 Urine Glucose (UA) 3+ (NEGATIVE) 11/05/17 05:24 Urine Ketones Negative (NEGATIVE) 11/05/17 05:24 Urine Occult Blood 1+ (NEGATIVE) 11/05/17 05:24 Urine Nitrite Negative (NEGATIVE) 11/05/17 05:24 Urine Bilirubin Negative (NEGATIVE) 11/05/17 05:24 Urine Urobilinogen Normal (NORMAL) 11/05/17 05:24 Ur Leukocyte Esterase 1+ (NEGATIVE) 11/05/17 05:24 Urine RBC 3-5 /HPF (NONE SEEN) 11/05/17 05:24 Urine WBC 5-10 /HPF (NONE SEEN) 11/05/17 05:24 Ur Squamous Epith Cells Moderate /HPF (NEGATIVE) 11/05/17 05:24 Urine Bacteria 1+ /HPF (NEGATIVE) 11/05/17 05:24 Ur Culture Indicated? Yes/culture set up 11/05/17 05:24 Stool Description 15g bloody mucoid 11/05/17 05:22 Stl Occult Blood (IFOB) Positive (NEGATIVE) A 11/05/17 05:22 Stool for White Cells Positive (NEGATIVE) A 11/05/17 05:22 - Plan (1) Colitis Status: Acute Plan: FLAGYL 500MG IV Q6H, BENTYL 20MG PO BID, DEMEROL 25MG IV Q4H PRN, PHENERGAN 12.5MG IV Q6H, ZOFRAN 4MG IV Q8H PRN, CONTINUE TO MONITOR (2) Hypertension Status: Acute Qualifiers: Hypertension type: essential hypertension Qualified Code(s): I10 - Essential (primary) hypertension Plan: CONTINUE ZABETA, HCTZ, ZESTRIL, CONTINUE TO MONITOR (3) Diabetes Status: Acute Qualifiers: Diabetes mellitus type: type 2 Diabetes mellitus 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 treater insulin use: with termite treater use Diabetes mellitus complication status: without complication Qualified Code(s): E11.9 - Type 2 diabetes mellitus without complications; Z79.4 - penitentiary (current) use of insulin; Z79.4 - intermediate project manager ( current) use of insulin; Z79.4 - penitentiary (current) use of insulin; Z79.4 - penitentiary (current) use of insulin Plan: CONTINUE HUMULIN R SLIDING SCALE, GLUCOPHAGE, MONITOR OTBS (4) GERD (gastroesophageal reflux disease) Status: Acute Qualifiers: Esophagitis presence: esophagitis presence not specified Qualified Code(s) : K21.9 - Gastro-esophageal reflux disease without esophagitis Plan: CONTINUE NEXIUM, CONTINUE TO MONITOR
[2017-11-09] MEDS: FLAGYL IV PREMIX 500 MG BAG 500 MG/100 ML BAG IV SCH ×4 (03:00→21:37)
[2017-11-09] MEDS: NS + KCL 20 MEQ/L 1,000 ML IV SCH ×3 (03:46→16:57)
[2017-11-09 06:15] LABS: ALANINE AMINOTRANSFERASE 47 Units/L (12-78); ALBUMIN 3.2 g/dL (3.4-5.0); ALKALINE PHOSPHATASE 57 Units/L (46-116); ASPARTATE AMINO TRANSFERASE 46 Units/L (15-37); BLOOD UREA NITROGEN 6 mg/dL (7-18); CALCIUM 8.1 mg/dL (8.5-10.1); CARBON DIOXIDE 24.7 mmol/L (21-32); CHLORIDE 106 mmol/L (98-107); COR CA(FOR HYPOALB) 8.7 mg/dL (8.5-10.1); COR NA(FOR HYPERGLY) 143 mmol/L (136-145); CREATININE 0.65 mg/dL (0.55-1.02); SODIUM 142 mmol/L (136-145); eGFR BLACK RACES > 60 (>60); eGFR NON BLACK RACES > 60 (>60)
[2017-11-09 06:18] LABS: BASOPHILS # (AUTO) 0.1 X10^3/uL (0.0-0.1); BASOPHILS % (AUTO) 1.2 % (0.2-1.0); EOSINOPHILS # (AUTO) 0.2 x10^3/uL (0.0-0.2); EOSINOPHILS % (AUTO) 4.7 % (0.9-2.9); HEMATOCRIT 33.2 % (36.0-47.0); HEMOGLOBIN 11.8 g/dL (12.0-16.0); LYMPHOCYTES # (AUTO) 2.4 X10^3/uL (1.3-2.9); LYMPHOCYTES % (AUTO) 47.3 % (21.0-51.0); MEAN CORPUSCULAR HEMOGLOBIN 29.8 pg (27.0-34.0); MEAN CORPUSCULAR HGB CONC 35.5 g/dL (33.0-35.0); MEAN PLATELET VOLUME 7.2 fL (7.4-11.0); MONOCYTES # (AUTO) 0.4 x10^3/uL (0.3-0.8); MONOCYTES % (AUTO) 7.7 % (0.0-13.0); NEUTROPHILS % (AUTO) 39.1 % (42.0-75.0); PLATELET COUNT 242 X10^3/uL (150.0-450.0); RED BLOOD COUNT 3.95 X10^6/uL (3.5-5.4); RED CELL DISTRIBUTION WIDTH 12.5 % (11.6-16.5); WHITE BLOOD COUNT 5.2 X10^3/uL (3.6-10.0)
[2017-11-09] MEDS: NEURONTIN CAP 300 MG PO SCH ×3 (06:23→21:46)
[2017-11-09] MEDS: GLUCOPHAGE PO SCH ×2 (06:24→17:06)
--- NOTE | 2017-11-09 09:21 | DR.CONSULT ---
Consult - Consultation for Day of: Date: 11/08/17 - Chief Complaint Chief Complaint: Patient referred for abdominal pain and colitis. Patient with complaints of dysphagia, dyspepsia, chest pain with food and liquids, N/v, and lower abdominal pain. - Allergies Allergies/Adverse Reactions: Allergies Allergy/AdvReac Type Severity Reaction Status Date / Time amoxicillin Allergy Verified 11/05/17 07:08 cephalexin [From Keflex] Allergy Verified 11/05/17 07:08 ibuprofen [From Motrin] Allergy Verified 11/05/17 07:08 naproxen [From Aleve] Allergy Verified 11/05/17 07:08 Penicillins Allergy Verified 11/05/17 07:08 Sulfa (Sulfonamide Allergy Verified 11/05/17 07:08 Antibiotics) [SULFA] - History of Present Illness History of Present Illness: Patient is a 47yo female who was referred for abdominal pain and colitis. Patient with complaints of dysphagia, dyspepsia, chest pain with food and liquids, N/V that has been going on for 2 weeks, and lower abdominal pain and hematochezia since night. She denies constipation, diarrhea and melena. She has never had a colonoscopy or EGD. Abdomen and pelvis CT shows mild mural thickening and juan colonic stranding of the distal transverse and descending colon and hepatic steatosis. Hgb is stable at 11.2 and hemoccult stool positive. Father had stomach and colon cancer. - Past Medical History Past Medical History: Arthritis, Asthma, Diabetes, Migraines, Hypertension - Past Surgical History Surgical History: Cholecystectomy, Hysterectomy, Other - Family History Family Medical History: Diabetes Mellitus, Cancer (father with stomach and colon cancer, brother with metatstatic cancer), [place], Hypertension - Social History Does patient currently use any type of tobacco product: No Have you used tobacco products in the last 12 months: No Type of Tobacco Use: None Does any household member use tobacco: No Alcohol Use: None Drug Use: None - Medications Home Medications: Albuterol Neb 2.5MG/ 3Ml [ALBUTEROL NEB 2.5MG/ 3ML *] 1 vial INH Q4H PRN [History Confirmed 11/05/17] Aspirin EC [ASPIRIN EC 81 MG *] 1 tab PO DAILY 11/05/17 [History Confirmed 11/05] Biotin 1 cap PO DAILY 11/05/17 [History Confirmed 11/05/17] Cholecalciferol [Vitamin D3] 1 cap PO DAILY 11/05/17 [History Confirmed 11/05/17 ] Esomeprazole Magnesium [NEXIUM 40 MG *] 1 cap PO DAILY 11/05/17 [History Confirmed 11/05/17] Fluticasone Nasal [place] [FLONASE NASAL SPRAY *] 2 inh INH DAILY 11/05/17 [ History Confirmed 11/05/17] Gabapentin 1 cap PO TID 11/05/17 [History Confirmed 11/05/17] Gabapentin 2 cap PO TID 11/05/17 [History Confirmed 11/05/17] Gabapentin 300 mg PO ONCE 11/05/17 [History Confirmed 11/05/17] Gabapentin [Neurontin] 800 mg PO ACHS 11/05/17 [History Confirmed 11/05/17] Hydrochlorothiazide 25 mg PO ONCE 11/05/17 [History Confirmed 11/05/17] Hydrochlorothiazide [HYDROCHLOROTHIAZIDE 25 MG TAB *] 1 tab PO DAILY 11/05/17 [ History Confirmed 11/05/17] Imipramine HCl 50 mg PO HS 11/05/17 [History Confirmed 11/05/17] Lisinopril 20 mg PO DAILY 11/05/17 [History Confirmed 11/05/17] Loratadine 10 mg PO DAILY 11/05/17 [History Confirmed 11/05/17] Metformin HCl 1 tab PO BID 11/05/17 [History Confirmed 11/05/17] Misc Home Med [Patient's Home Medication] 1 cap PO DAILY 11/05/17 [History Confirmed 11/05/17] Misc Home Med [Patient's Home Medication] 1 cap PO DAILY 11/05/17 [History Confirmed 11/05/17] Misc Home Med [Patient's Home Medication] 450 mg PO DAILY 11/05/17 [History Confirmed 11/05/17] Misc Home Med [Patient's Home Medication] 520 mg PO DAILY 11/05/17 [History Confirmed 11/05/17] Multivit-Min/Iron Fum/Folic AC [Brdqu-Byuogwd-Cevtobch Tablet] 1 tab PO DAILY [History Confirmed 11/05/17] Nebivolol HCl [Bystolic] 1 tab PO DAILY 11/05/17 [History Confirmed 11/05/17] Nebivolol HCl [Bystolic] 5 mg PO ONCE 11/05/17 [History Confirmed 11/05/17] [place]-3 Fatty Acids/Fish Oil [[place] 3] 1,000 mg PO ONCE 11/05/17 [History Confirmed 11/05/17] Topiramate [Trokendi XR] 100 mg PO BID 11/05/17 [History Confirmed 11/05/17] Turmeric/Turmeric Root Extract [Turmeric 500 mg Capsule] 1 cap PO DAILY [History Confirmed 11/05/17] Vitamin E 1 cap PO DAILY 11/05/17 [History Confirmed 11/05/17] - Review of Systems Constitutional: Weakness Eyes: No Symptoms Reported ENT: No Symptoms Reported Respiratory: No Symptoms Reported Cardiovascular: No Symptoms Reported Gastrointestinal: See HPI, Nausea, Vomiting, Abdominal Pain (lower), Hematochezia, Other (chest pain with food and liquids, dysphagia and dyspepsia) Genitourinary: No Symptoms Reported Musculoskeletal: No Symptoms Reported Skin: No Symptoms Reported Neurological: No Symptoms Reported - Physical Exam Vital Signs: Temperature 98.2 F Pulse Rate [Right Brachial] 77 Pulse Rate [Left Radial] 84 Pulse Rate 65 Respiratory Rate 18 Blood Pressure [Right Arm] 122/93 Blood Pressure [Left Arm] 173/85 Blood Pressure 129/82 O2 Sat by Pulse Oximetry 98 Oriented: Normal Eyes: Normal Ear: Normal Nose: Normal Throat: Normal Respiratory: Clear Throughout Cardiovascular: Normal Auscultation: Bowel Sounds: Normal Palpation: Normal, Other (no distention). negative: Spleen Enlarged, Liver Enlarged, Mass Pulsatile Tenderness: Other (lower abdominal tenderness) Skin: Normal Musculoskeletal: Normal Psychiatric: Normal Mood Description: Calm Affect: Normal Speech Pattern: Clear - Plan Plan: Assessment. 1. N/V, atypical chest pain, dysphagia, dyspepsia r/o gastric ulcer, gastric adenocarcinoma. 2. Occult GI Bleed, abnormal CT imaging. 3. Hematochezia. 4. Hepatic Steatosis. Plan. 1. EGD tomorrow, Protonix IV. 2. Colon will be needed as outpatient, if patient is in the hospital on may do then. 3. Monitor Hgb transfuse as needed. 4. Monitor LFTs. Plan reviewed with Dr. Amanda
[2017-11-09] MEDS: CIPRO IV 400 MG PREMIX* 400 MG/200 ML IV.SOLN. IV SCH ×3 (09:27→23:00)
[2017-11-09] MEDS ORDERED: ZESTRIL TAB 20 MG ONE (09:32)
[2017-11-09] MEDS: HYDROCHLOROTHIAZIDE 25 MG TAB PO SCH (09:33)
[2017-11-09] MEDS: ZESTRIL TAB 20 MG PO SCH (09:34)
[2017-11-09] MEDS: BENTYL CAP 10 MG PO SCH ×2 (09:34→21:43)
[2017-11-09] MEDS: ZEBETA TAB 5 MG PO SCH (09:34)
[2017-11-09] MEDS: PROVENTIL NEB TX 0.083% 2.5MG/ 3ML NEB SCH ×4 (10:34→21:30)
[2017-11-09] MEDS: FLONASE NASAL SPRAY ENOSTRIL SCH (10:39)
--- NOTE | 2017-11-09 11:23 | PCM.PROG ---
Progress Note - Progress Note for Day of Date: 11/07/17 - Subjective Subjective: IS BEING TREATED FOR COLITIS. TODAY, SHE IS ALERT AND ORIENTED, LYING IN BED ON MORNING ROUNDS. SPOUSE AT BEDSIDE. SHE CONTINUES WITH COMPLAINTS OF DIFFUSE ABDOMINAL PAIN, NAUSEA, AND LOOSE STOOLS. SHE ALSO REPORTS SEVERE NASAL CONGESTION AND HEADACHE TODAY. ON EXAMINATION, HEART IS REGULAR IN RATE AND RHYTHM. BILATERAL LUNGS ARE CLEAR TO AUSCULTATION. ABDOMEN IS ROUND, SOFT, AND NOTED WITH MODERATE, DIFFUSE TENDERNESS TO PALPATION. HYPERACTIVE BOWEL SOUNDS ARE NOTED TO ALL QUADRANTS. THERE IS NORMAL RANGE OF MOTION NOTED TO ALL EXTREMITIES. HER VITALS THIS MORNING ARE 98.0-78-18-97%-120/ 76. LABS WERE OBTAINED. ABNORMAL LAB VALUES INCLUDE THE FOLLOWING: HGB 11.7, HCT 33.1, BUN 6, GLUCOSE 146, CALCIUM 7.7, TOTAL PROTEIN 5.9, ALBUMIN 3.0. WE PLAN TO CONSULT , INSURANCE SPECIALIST. OTHERWISE, WE WILL CONTINUE IV ANTIBIOTICS AND CURRENT PLAN OF CARE FOR COLITIS. WE WILL OBTAIN A SINUS CT TODAY AND START FLONASE 2 SPRAYS TO EACH NOSTRIL DAILY. OTHERWISE, WE WILL FOLLOW UP WITH AM LABS AND CONTINUE TO MONITOR PATIENT. - Past Medical Family Social History Past Med/Fam/Surg Hx: No changes since H&P Allergies: Allergies amoxicillin Allergy (Verified 11/05/17 07:08) cephalexin [From Keflex] Allergy (Verified 11/05/17 07:08) ibuprofen [From Motrin] Allergy (Verified 11/05/17 07:08) naproxen [From Aleve] Allergy (Verified 11/05/17 07:08) Penicillins Allergy (Verified 11/05/17 07:08) Sulfa (Sulfonamide Antibiotics) [SULFA] Allergy (Verified 11/05/17 07:08) - Review of Systems ROS: No change since H&P - Vital Signs and I&O's Vital Signs: Temperature 98.3 F Pulse Rate [Right Brachial] 77 Pulse Rate [Left Radial] 62 Pulse Rate 65 Respiratory Rate 18 Blood Pressure [Right Arm] 122/93 Blood Pressure [Left Arm] 167/94 Blood Pressure 129/82 O2 Sat by Pulse Oximetry 96 Intake and Output: Intake & Output 11/06/17 11/07/17 11/08/17 11/09/17 11:59 11:59 11:59 11:59 Intake Total 2992 4047 4355 2772 Balance 2992 4047 4355 2772 - Physical Exam Oriented: Normal Eyes: Normal Ear: Normal Nose: Other (NASAL CONGESTION ) Throat: Normal Respiratory: Normal Cardiovascular: Normal : Normal Auscultation: Bowel Sounds: Normal Palpation: Normal Tenderness: Other (lower abdominal tenderness) Skin: Normal Musculoskeletal: Normal Psychiatric: Normal Mood Description: Calm Affect: Normal Speech Pattern: Clear - Laboratory and Diagnostics Result Diagrams: 11/09/17 05:13 11/09/17 05:13 Labs: 11/05/17 05:24 Urine,Clean Catch Urine Culture - Final Laboratory WBC 5.2 X10^3/uL (3.6-10.0) 11/09/17 05:13 RBC 3.95 X10^6/uL (3.5-5.4) 11/09/17 05:13 Hgb 11.8 g/dL (12.0-16.0) L 11/09/17 05:13 Hct 33.2 % (36.0-47.0) L 11/09/17 05:13 MCV 84.0 fL (80.0-100.0) 11/09/17 05:13 MCH 29.8 pg (27.0-34.0) 11/09/17 05:13 MCHC 35.5 g/dL (33.0-35.0) H 11/09/17 05:13 RDW 12.5 % (11.6-16.5) 11/09/17 05:13 Plt Count 242 X10^3/uL (150.0-450.0) 11/09/17 05:13 MPV 7.2 fL (7.4-11.0) L 11/09/17 05:13 Neut % (Auto) 39.1 % (42.0-75.0) L 11/09/17 05:13 Lymph % (Auto) 47.3 % (21.0-51.0) 11/09/17 05:13 [place] % (Auto) 7.7 % (0.0-13.0) 11/09/17 05:13 Eos % (Auto) 4.7 % (0.9-2.9) H 11/09/17 05:13 Baso % (Auto) 1.2 % (0.2-1.0) H 11/09/17 05:13 Neut # (Auto) 2.0 x10^3/uL (2.2-4.8) L 11/09/17 05:13 Lymph # (Auto) 2.4 X10^3/uL (1.3-2.9) 11/09/17 05:13 [place] # (Auto) 0.4 x10^3/uL (0.3-0.8) 11/09/17 05:13 Eos # (Auto) 0.2 x10^3/uL (0.0-0.2) 11/09/17 05:13 Baso # (Auto) 0.1 X10^3/uL (0.0-0.1) 11/09/17 05:13 Absolute Nucleated RBC 0.2 /100WBC 11/09/17 05:13 Sodium 142 mmol/L (136-145) 11/09/17 05:13 Corrected Sodium 143 mmol/L (136-145) 11/09/17 05:13 Potassium 3.8 mmol/L (3.5-5.1) 11/09/17 05:13 Chloride 106 mmol/L (98-107) 11/09/17 05:13 Carbon Dioxide 24.7 mmol/L (21-32) 11/09/17 05:13 BUN 6 mg/dL (7-18) L 11/09/17 05:13 Creatinine 0.65 mg/dL (0.55-1.02) 11/09/17 05:13 Est GFR (MDRD) Af Amer > 60 (>60) 11/09/17 05:13 Est GFR (MDRD) Non-Af > 60 (>60) 11/09/17 05:13 Glucose 138 mg/dL (65-99) H 11/09/17 05:13 POC Glucose (mg/dL) 149 mg/dL (65-99) H 11/09/17 11:10 Calcium 8.1 mg/dL (8.5-10.1) L 11/09/17 05:13 Corrected Calcium 8.7 mg/dL (8.5-10.1) 11/09/17 05:13 Total Bilirubin 0.30 mg/dL (0.2-1.0) 11/09/17 05:13 AST 46 Units/L (15-37) H 11/09/17 05:13 ALT 47 Units/L (12-78) 11/09/17 05:13 Alkaline Phosphatase 57 Units/L (46-116) 11/09/17 05:13 C-Reactive Protein 5.00 mg/L (0-3.0) H 11/05/17 04:17 Total Protein 6.0 g/dL (6.4-8.2) L 11/09/17 05:13 Albumin 3.2 g/dL (3.4-5.0) L 11/09/17 05:13 Globulin 2.8 g/dL (2.5-4.5) 11/09/17 05:13 Albumin/Globulin Ratio 1.1 Ratio (1.1-2.1) 11/09/17 05:13 Amylase 30 Units/L (25-115) 11/05/17 04:17 Lipase 114 Units/L (73-393) 11/05/17 04:17 Specimen Type Clean catch urine 11/05/17 05:24 Urine Color Yellow (YELLOW) 11/05/17 05:24 Urine Appearance Clear (CLEAR) 11/05/17 05:24 Urine pH 5.0 (5.0 - 8.0) 11/05/17 05:24 Ur Specific [place] 1.020 (1.000-1.030) 11/05/17 05:24 Urine Protein 2+ (NEGATIVE) 11/05/17 05:24 Urine Glucose (UA) 3+ (NEGATIVE) 11/05/17 05:24 Urine Ketones Negative (NEGATIVE) 11/05/17 05:24 Urine Occult Blood 1+ (NEGATIVE) 11/05/17 05:24 Urine Nitrite Negative (NEGATIVE) 11/05/17 05:24 Urine Bilirubin Negative (NEGATIVE) 11/05/17 05:24 Urine Urobilinogen Normal (NORMAL) 11/05/17 05:24 Ur Leukocyte Esterase 1+ (NEGATIVE) 11/05/17 05:24 Urine RBC 3-5 /HPF (NONE SEEN) 11/05/17 05:24 Urine WBC 5-10 /HPF (NONE SEEN) 11/05/17 05:24 Ur Squamous Epith Cells Moderate /HPF (NEGATIVE) 11/05/17 05:24 Urine Bacteria 1+ /HPF (NEGATIVE) 11/05/17 05:24 Ur Culture Indicated? Yes/culture set up 11/05/17 05:24 Stool Description 15g bloody mucoid 11/05/17 05:22 Stl Occult Blood (IFOB) Positive (NEGATIVE) A 11/05/17 05:22 Stool for White Cells Positive (NEGATIVE) A 11/05/17 05:22 - Plan (1) Colitis Status: Acute Plan: FLAGYL 500MG IV Q6H, BENTYL 20MG PO BID, DEMEROL 25MG IV Q4H PRN, PHENERGAN 12.5MG IV Q6H, ZOFRAN 4MG IV Q8H PRN, CONTINUE TO MONITOR (2) Hypertension Status: Acute Qualifiers: Hypertension type: essential hypertension Qualified Code(s): I10 - Essential (primary) hypertension Plan: CONTINUE ZABETA, HCTZ, ZESTRIL, CONTINUE TO MONITOR (3) Diabetes Status: Acute Qualifiers: Diabetes mellitus type: type 2 Diabetes mellitus senior living insulin use: with rn long term care use Diabetes mellitus complication status: without complication Qualified Code(s): E11.9 - Type 2 diabetes mellitus without complications; Z79.4 - watermelon inspector (current) use of insulin; Z79.4 - watermelon inspector ( current) use of insulin; Z79.4 - senior care (current) use of insulin; Z79.4 - senior care (current) use of insulin Plan: CONTINUE HUMULIN R SLIDING SCALE, GLUCOPHAGE, MONITOR OTBS (4) GERD (gastroesophageal reflux disease) Status: Acute Qualifiers: Esophagitis presence: esophagitis presence not specified Qualified Code(s) : K21.9 - Gastro-esophageal reflux disease without esophagitis Plan: CONTINUE NEXIUM, CONTINUE TO MONITOR (5) Acute sinusitis Status: Acute Qualifiers: Sinusitis location: unspecified location Recurrence: not specified as recurrent Qualified Code(s): J01.90 - Acute sinusitis, unspecified Plan: OBTAIN SINUS CT, FLONASE 2 SPRAYS TO EACH NOSTIL DAILY, CONTINUE TO MONITOR
[2017-11-09] MEDS: DEMEROL INJ IVP PRN (11:31)
[2017-11-09] MEDS: PROTONIX INJ 40 MG VIAL IVP SCH ×2 (11:32→21:48)
[2017-11-09] MEDS ORDERED: NS 500 ML IV 500 ML IV ONE (12:15)
[2017-11-09] MEDS: ZOFRAN INJ 4 MG VIAL IVP PRN (13:55)
[2017-11-09] MEDS ORDERED: DIPRIVAN VIAL 20 ML ONE (14:21)
[2017-11-09] MEDS: TAB-A-VITE PO SCH (16:05)
[2017-11-09] MEDS: CLARITIN PO SCH (16:05)
[2017-11-09] MEDS: LOVAZA PO SCH (16:05)
[2017-11-09] MEDS: PHENERGAN INJ 25 MG IV PRN (16:30)
--- NOTE | 2017-11-09 20:38 | PCM.PROG ---
Progress Note - Progress Note for Day of Date: 11/08/17 - Subjective Subjective: IS BEING TREATED FOR COLITIS. TODAY, SHE IS ALERT AND ORIENTED, LYING IN BED ON MORNING ROUNDS. SPOUSE AT BEDSIDE. SHE CONTINUES WITH COMPLAINTS OF DIFFUSE ABDOMINAL PAIN, NAUSEA, AND LOOSE STOOLS. ON EXAMINATION, HEART IS REGULAR IN RATE AND RHYTHM. BILATERAL LUNGS ARE CLEAR TO AUSCULTATION. ABDOMEN IS ROUND, SOFT, AND NOTED WITH MODERATE, DIFFUSE TENDERNESS TO PALPATION. HYPERACTIVE BOWEL SOUNDS ARE NOTED TO ALL QUADRANTS. THERE IS NORMAL RANGE OF MOTION NOTED TO ALL EXTREMITIES. HER VITALS THIS MORNING ARE 98.2-86-20 -96%-122/80. LABS WERE OBTAINED. ABNORMAL LAB VALUES INCLUDE THE FOLLOWING: HGB 11.2, HCT 32.3, GLUCOSE 133, CALCIUM 8.1, TOTAL PROTEIN 5.9, ALBUMIN 3.1. A SINUS CT WAS OBTAINED YESTERDAY AND REVEALED MILD MUCOSAL THICKENING OF THE ETHMOID AIR CELLS AND RIGHT MAXILLARY SINUS. NASAL TURBINATE HYPERTROPHY RIGHT GREATER THAN LEFT. WILL CONSULT WITH PATIENT TODAY. OTHERWISE, WE WILL CONTINUE IV ANTIBIOTICS AND CURRENT PLAN OF CARE FOR COLITIS AND SINUSITIS. OTHERWISE, WE WILL FOLLOW UP WITH AM LABS AND CONTINUE TO MONITOR PATIENT. - Past Medical Family Social History Past Med/Fam/Surg Hx: No changes since H&P Allergies: Allergies amoxicillin Allergy (Verified 11/05/17 07:08) cephalexin [From Keflex] Allergy (Verified 11/05/17 07:08) ibuprofen [From Motrin] Allergy (Verified 11/05/17 07:08) naproxen [From Aleve] Allergy (Verified 11/05/17 07:08) Penicillins Allergy (Verified 11/05/17 07:08) Sulfa (Sulfonamide Antibiotics) [SULFA] Allergy (Verified 11/05/17 07:08) - Review of Systems ROS: No change since H&P - Vital Signs and I&O's Vital Signs: Temperature 97.9 F Pulse Rate [Right Brachial] 80 Pulse Rate [Left Radial] 62 Pulse Rate 65 Respiratory Rate 20 Blood Pressure [Right Arm] 139/63 Blood Pressure [Left Arm] 167/94 Blood Pressure 129/82 O2 Sat by Pulse Oximetry 97 Intake and Output: Intake & Output 11/07/17 11/08/17 11/09/17 11/10/17 11:59 11:59 11:59 11:59 Intake Total 4047 4355 2772 1000 Balance 4047 4355 2772 1000 - Physical Exam Oriented: Normal Eyes: Normal Ear: Normal Nose: Other (NASAL CONGESTION ) Throat: Normal Respiratory: Normal Cardiovascular: Normal : Normal Auscultation: Bowel Sounds: Normal Palpation: Normal Tenderness: Other (lower abdominal tenderness) Skin: Normal Musculoskeletal: Normal Psychiatric: Normal Mood Description: Calm Affect: Normal Speech Pattern: Clear - Laboratory and Diagnostics Result Diagrams: 11/09/17 05:13 11/09/17 05:13 Labs: 11/05/17 05:24 Urine,Clean Catch Urine Culture - Final Laboratory WBC 5.2 X10^3/uL (3.6-10.0) 11/09/17 05:13 RBC 3.95 X10^6/uL (3.5-5.4) 11/09/17 05:13 Hgb 11.8 g/dL (12.0-16.0) L 11/09/17 05:13 Hct 33.2 % (36.0-47.0) L 11/09/17 05:13 MCV 84.0 fL (80.0-100.0) 11/09/17 05:13 MCH 29.8 pg (27.0-34.0) 11/09/17 05:13 MCHC 35.5 g/dL (33.0-35.0) H 11/09/17 05:13 RDW 12.5 % (11.6-16.5) 11/09/17 05:13 Plt Count 242 X10^3/uL (150.0-450.0) 11/09/17 05:13 MPV 7.2 fL (7.4-11.0) L 11/09/17 05:13 Neut % (Auto) 39.1 % (42.0-75.0) L 11/09/17 05:13 Lymph % (Auto) 47.3 % (21.0-51.0) 11/09/17 05:13 [place] % (Auto) 7.7 % (0.0-13.0) 11/09/17 05:13 Eos % (Auto) 4.7 % (0.9-2.9) H 11/09/17 05:13 Baso % (Auto) 1.2 % (0.2-1.0) H 11/09/17 05:13 Neut # (Auto) 2.0 x10^3/uL (2.2-4.8) L 11/09/17 05:13 Lymph # (Auto) 2.4 X10^3/uL (1.3-2.9) 11/09/17 05:13 [place] # (Auto) 0.4 x10^3/uL (0.3-0.8) 11/09/17 05:13 Eos # (Auto) 0.2 x10^3/uL (0.0-0.2) 11/09/17 05:13 Baso # (Auto) 0.1 X10^3/uL (0.0-0.1) 11/09/17 05:13 Absolute Nucleated RBC 0.2 /100WBC 11/09/17 05:13 Sodium 142 mmol/L (136-145) 11/09/17 05:13 Corrected Sodium 143 mmol/L (136-145) 11/09/17 05:13 Potassium 3.8 mmol/L (3.5-5.1) 11/09/17 05:13 Chloride 106 mmol/L (98-107) 11/09/17 05:13 Carbon Dioxide 24.7 mmol/L (21-32) 11/09/17 05:13 BUN 6 mg/dL (7-18) L 11/09/17 05:13 Creatinine 0.65 mg/dL (0.55-1.02) 11/09/17 05:13 Est GFR (MDRD) Af Amer > 60 (>60) 11/09/17 05:13 Est GFR (MDRD) Non-Af > 60 (>60) 11/09/17 05:13 Glucose 138 mg/dL (65-99) H 11/09/17 05:13 POC Glucose (mg/dL) 103 mg/dL (65-99) H 11/09/17 16:08 Calcium 8.1 mg/dL (8.5-10.1) L 11/09/17 05:13 Corrected Calcium 8.7 mg/dL (8.5-10.1) 11/09/17 05:13 Total Bilirubin 0.30 mg/dL (0.2-1.0) 11/09/17 05:13 AST 46 Units/L (15-37) H 11/09/17 05:13 ALT 47 Units/L (12-78) 11/09/17 05:13 Alkaline Phosphatase 57 Units/L (46-116) 11/09/17 05:13 C-Reactive Protein 5.00 mg/L (0-3.0) H 11/05/17 04:17 Total Protein 6.0 g/dL (6.4-8.2) L 11/09/17 05:13 Albumin 3.2 g/dL (3.4-5.0) L 11/09/17 05:13 Globulin 2.8 g/dL (2.5-4.5) 11/09/17 05:13 Albumin/Globulin Ratio 1.1 Ratio (1.1-2.1) 11/09/17 05:13 Amylase 30 Units/L (25-115) 11/05/17 04:17 Lipase 114 Units/L (73-393) 11/05/17 04:17 Specimen Type Clean catch urine 11/05/17 05:24 Urine Color Yellow (YELLOW) 11/05/17 05:24 Urine Appearance Clear (CLEAR) 11/05/17 05:24 Urine pH 5.0 (5.0 - 8.0) 11/05/17 05:24 Ur Specific [place] 1.020 (1.000-1.030) 11/05/17 05:24 Urine Protein 2+ (NEGATIVE) 11/05/17 05:24 Urine Glucose (UA) 3+ (NEGATIVE) 11/05/17 05:24 Urine Ketones Negative (NEGATIVE) 11/05/17 05:24 Urine Occult Blood 1+ (NEGATIVE) 11/05/17 05:24 Urine Nitrite Negative (NEGATIVE) 11/05/17 05:24 Urine Bilirubin Negative (NEGATIVE) 11/05/17 05:24 Urine Urobilinogen Normal (NORMAL) 11/05/17 05:24 Ur Leukocyte Esterase 1+ (NEGATIVE) 11/05/17 05:24 Urine RBC 3-5 /HPF (NONE SEEN) 11/05/17 05:24 Urine WBC 5-10 /HPF (NONE SEEN) 11/05/17 05:24 Ur Squamous Epith Cells Moderate /HPF (NEGATIVE) 11/05/17 05:24 Urine Bacteria 1+ /HPF (NEGATIVE) 03/23/18 05:24 Ur Culture Indicated? Yes/culture set up 11/05/17 05:24 Stool Description 15g bloody mucoid 11/05/17 05:22 Stl Occult Blood (IFOB) Positive (NEGATIVE) A 11/05/17 05:22 Stool for White Cells Positive (NEGATIVE) A 11/05/17 05:22 Tissue Pathology To follow 11/09/17 14:40 - Plan (1) Colitis Status: Acute Plan: FLAGYL 500MG IV Q6H, CIPRO 400MG IV Q12H, BENTYL 20MG PO BID, DEMEROL 25MG IV Q4H PRN, PHENERGAN 12.5MG IV Q6H, ZOFRAN 4MG IV Q8H PRN, CONTINUE TO MONITOR (2) Hypertension Status: Acute Qualifiers: Hypertension type: essential hypertension Qualified Code(s): I10 - Essential (primary) hypertension Plan: CONTINUE ZABETA, HCTZ, ZESTRIL, CONTINUE TO MONITOR (3) Diabetes Status: Acute Qualifiers: Diabetes mellitus type: type 2 Diabetes mellitus group home insulin use: with intermediate project manager use Diabetes mellitus complication status: without complication Qualified Code(s): E11.9 - Type 2 diabetes mellitus without complications; Z79.4 - longterm (current) use of insulin; Z79.4 - termite exterminator ( current) use of insulin; Z79.4 - longterm (current) use of insulin; Z79.4 - termite exterminator (current) use of insulin Plan: CONTINUE HUMULIN R SLIDING SCALE, GLUCOPHAGE, MONITOR OTBS (4) GERD (gastroesophageal reflux disease) Status: Acute Qualifiers: Esophagitis presence: esophagitis presence not specified Qualified Code(s) : K21.9 - Gastro-esophageal reflux disease without esophagitis Plan: CONTINUE NEXIUM, CONTINUE TO MONITOR (5) Acute sinusitis Status: Acute Qualifiers: Sinusitis location: unspecified location Recurrence: not specified as recurrent Qualified Code(s): J01.90 - Acute sinusitis, unspecified Plan: CIPRO 400MG IV Q12H, FLONASE 2 SPRAYS TO EACH NOSTIL DAILY, CONTINUE TO MONITOR
[2017-11-09] MEDS: SNACK - Diabetic Appropriate PO SCH (21:39)
[2017-11-09] MEDS: IMIPRAMINE HCL 50 MG PO SCH (21:45)
[2017-11-10] MEDS ORDERED: GLUCOPHAGE ONE ×2 (05:34→16:21)
[2017-11-10] MEDS: NS + KCL 20 MEQ/L 1,000 ML IV SCH ×2 (05:47→14:15)
[2017-11-10] MEDS: FLAGYL IV PREMIX 500 MG BAG 500 MG/100 ML BAG IV SCH ×3 (05:47→14:16)
[2017-11-10] MEDS: GLUCOPHAGE PO SCH ×2 (06:04→16:29)
[2017-11-10] MEDS: NEURONTIN CAP 300 MG PO SCH ×2 (06:04→13:01)
[2017-11-10 06:22] LABS: BASOPHILS # (AUTO) 0.1 X10^3/uL (0.0-0.1); BASOPHILS % (AUTO) 1.9 % (0.2-1.0); EOSINOPHILS # (AUTO) 0.2 x10^3/uL (0.0-0.2); HEMATOCRIT 34.3 % (36.0-47.0); HEMOGLOBIN 12.1 g/dL (12.0-16.0); LYMPHOCYTES # (AUTO) 2.2 X10^3/uL (1.3-2.9); LYMPHOCYTES % (AUTO) 44.1 % (21.0-51.0); MEAN CORPUSCULAR HEMOGLOBIN 29.6 pg (27.0-34.0); MEAN CORPUSCULAR HGB CONC 35.3 g/dL (33.0-35.0); MEAN CORPUSCULAR VOLUME 83.9 fL (80.0-100.0); MEAN PLATELET VOLUME 7.2 fL (7.4-11.0); MONOCYTES # (AUTO) 0.5 x10^3/uL (0.3-0.8); MONOCYTES % (AUTO) 9.5 % (0.0-13.0); NEUTROPHILS % (AUTO) 40.5 % (42.0-75.0); PLATELET COUNT 255 X10^3/uL (150.0-450.0); RED BLOOD COUNT 4.09 X10^6/uL (3.5-5.4); RED CELL DISTRIBUTION WIDTH 12.7 % (11.6-16.5)
[2017-11-10 06:33] LABS: ALANINE AMINOTRANSFERASE 65 Units/L (12-78); ALBUMIN 3.3 g/dL (3.4-5.0); ALKALINE PHOSPHATASE 58 Units/L (46-116); ASPARTATE AMINO TRANSFERASE 64 Units/L (15-37); BLOOD UREA NITROGEN 6 mg/dL (7-18); CALCIUM 8.1 mg/dL (8.5-10.1); CARBON DIOXIDE 26.2 mmol/L (21-32); CHLORIDE 105 mmol/L (98-107); COR CA(FOR HYPOALB) 8.7 mg/dL (8.5-10.1); COR NA(FOR HYPERGLY) 142 mmol/L (136-145); CREATININE 0.72 mg/dL (0.55-1.02); SODIUM 141 mmol/L (136-145); TOTAL PROTEIN 6.4 g/dL (6.4-8.2); eGFR BLACK RACES > 60 (>60); eGFR NON BLACK RACES > 60 (>60)
[2017-11-10] MEDS ORDERED: ZESTRIL TAB 20 MG ONE (07:56)
[2017-11-10] MEDS: ZOFRAN INJ 4 MG VIAL IVP PRN (08:05)
[2017-11-10] MEDS: PROTONIX INJ 40 MG VIAL IVP SCH (08:05)
[2017-11-10] MEDS: CIPRO IV 400 MG PREMIX* 400 MG/200 ML IV.SOLN. IV SCH (08:05)
[2017-11-10] MEDS: LOVAZA PO SCH (08:07)
[2017-11-10] MEDS: BENTYL CAP 10 MG PO SCH (08:07)
[2017-11-10] MEDS: ZESTRIL TAB 20 MG PO SCH (08:08)
[2017-11-10] MEDS: HYDROCHLOROTHIAZIDE 25 MG TAB PO SCH (08:08)
[2017-11-10] MEDS: TAB-A-VITE PO SCH (08:08)
[2017-11-10] MEDS: ZEBETA TAB 5 MG PO SCH (08:08)
[2017-11-10] MEDS: CLARITIN PO SCH (08:08)
[2017-11-10] MEDS: FLONASE NASAL SPRAY ENOSTRIL SCH (08:10)
[2017-11-10] MEDS ORDERED: DIFLUCAN PO SCH (09:00)
[2017-11-10] MEDS: PROVENTIL NEB TX 0.083% 2.5MG/ 3ML NEB SCH (09:22)
[2017-11-10] MEDS: PHENERGAN INJ 25 MG IV PRN (13:02)
[2017-11-10 16:11] VITALS: BP 108/63
== END 2017-11-10 16:30 | disposition home or self-care (01) | DRG 392 ==
LOC: ER 03:51 → MED/SURG 07:25
PROVIDERS: ADMIT Internal Medicine; ATTEND Internal Medicine
PROC: 0DB88ZX Excision of Small Intestine, Via Natural or Artificial Opening Endoscopic, Diagnostic (ICD-10-PCS; 2017-11-09)
PROC: 0D757ZZ Dilation of Esophagus, Via Natural or Artificial Opening (ICD-10-PCS; 2017-11-09)
PROC: 0DB67ZX Excision of Stomach, Via Natural or Artificial Opening, Diagnostic (ICD-10-PCS; principal; 2017-11-09 13:30)
DX: K52.89 Other specified noninfective gastroenteritis and colitis (principal); K92.1 Melena; B37.81 Candidal esophagitis; K59.09 Other constipation; I10 Essential (primary) hypertension; E11.65 Type 2 diabetes mellitus with hyperglycemia; R10.84 Generalized abdominal pain; R11.2 Nausea with vomiting, unspecified; Z79.4 Long term (current) use of insulin; K21.9 Gastro-esophageal reflux disease without esophagitis; J01.90 Acute sinusitis, unspecified; R13.11 Dysphagia, oral phase; R07.89 Other chest pain; K76.0 Fatty (change of) liver, not elsewhere classified; K29.60 Other gastritis without bleeding; K22.4 Dyskinesia of esophagus; K22.2 Esophageal obstruction
CPT/HCPCS: 36415; 70486; 71260; 74176; 80048; 80053; 81001; 82150; 82274; 83630; 83690; 85025; 86140; 87086; 94640; 94760; 96365; 96374; 96375; 99283; 99284; A4222; C9113; S0030; A4217; J0744; J1815; J2175; J2270; J2405; J2550; J3480; J3490; J7613

== ENCOUNTER → 2017-11-26 | Outpatient (CLI) | payer OTHER ==
[2017-11-10 16:11] VITALS: BP 108/63
--- NOTE | 2017-11-26 11:20 | NM ---
HISTORY: Abdominal pain. Clinical concern for gastroparesis/gastric emptying disorder. Nuclear medicine gastric emptying study. Findings: For the purposes of this gastric emptying study, 0.6 mCi of technetium 99m colloid was labeled to [place] d and administered to the patient, orally. The patient was imaged in the supine position, and images were obtained sequentially to evaluate gastric imaging. Regions of interest were selected over the st omach as well as over appropriate background regions prior to calculating the gastric emptying half-t mohsen curve. Imaging was taken out to 90 minutes. The gastric emptying half time for this procedure, as calculated, was within normal limits (as the normal half-life ranges between 45 and 110 minutes, dep ending on the specific nuclear medicine laboratory standards). No radiotracer gastroesophageal reflux was identified on this examination. IMPRESSION: Normal gastric emptying half-time of 79 minutes. Reported By:
== END ==
LOC: RAD 08:57
PROVIDERS: ATTEND Internal Medicine Gastroenterology
DX: R11.2 Nausea with vomiting, unspecified (principal)
CPT/HCPCS: 78264

== ENCOUNTER 2017-12-16 10:24 | Day surgery (SDC) | payer OTHER ==
[2017-12-16] MEDS ORDERED: D5 LR 1000 ML 1,000 ML IV ONE (10:38)
[2017-12-16] MEDS ORDERED: DIPRIVAN VIAL 20 ML ONE (12:38)
[2017-12-16 12:59] VITALS: BP 148/94
== END 2017-12-16 13:00 | disposition home or self-care (01) ==
LOC: SURG1 10:24
PROVIDERS: ATTEND Internal Medicine Gastroenterology
PROC: 0DBE8ZX Excision of Large Intestine, Via Natural or Artificial Opening Endoscopic, Diagnostic (ICD-10-PCS; principal; 2017-12-16 18:15)
PROC: 0DJD8ZZ Inspection of Lower Intestinal Tract, Via Natural or Artificial Opening Endoscopic (ICD-10-PCS; principal; 2017-12-16 18:15)
DX: R10.84 Generalized abdominal pain (principal); R19.7 Diarrhea, unspecified; R93.3 Abnormal findings on diagnostic imaging of other parts of digestive tract; K64.0 First degree hemorrhoids; Z80.0 Family history of malignant neoplasm of digestive organs; K92.1 Melena
CPT/HCPCS: A4217; J3490; J7120

== ENCOUNTER 2019-09-16 14:49 | Observation (INO) ==
[2019-09-16 15:04] VITALS: BMI 28.5
--- NOTE | 2019-09-16 15:36 | DR.CP ---
HPI Time Seen Time Seen by Provider: 09/16/19 15:34 PCP Primary Care Physician: LOVE NARAYAN , HPI Comment HPI Comment: Pt. with CP starting this afternoon Complaint Chief Complaint Doctor Comments: Pt. was moving plants rated pain 01/23 Chief Complaint:: PT C/O B/P < 78/ 32, AND C/O BEING DIZZY AND PT C/O CHEST PAINS THAT STARTED AT 1440, PT C/O RIGHT SIDE C/P AND SOB ,( CHEST FEELS LIKE SHE CAN'T GET A DEEP BREATHE) THAT RADIATES TO HER RIGHT LUNG AREA, BR Source History Provided: Patient Mode of Arrival Mode of Arrival: Ambulatory Timing Onset of Chief Complaint: 09/16/19 Came on: Suddenly Pain: Resolved Duration Duration: Constant How lon Duration: Minutes Location Location of Chest Pain: Right Chest Pain Radiation Location: Right Shoulder Context Onset: With heavy exertion Cardiac Risk Factors: Family History, HTN and Diabetes PE Risk Factors: None History of: None Prehospital Care: None Quality Quality: Pressure like Severity Severity: Moderate Modifying Factors Worsens: Exertion Impoves: Rest Associated Signs and Symptoms Associated Signs and Symptoms: Shortness of Breath, Diaphoresis and Nausea/Vomiting (nausea only); denies Palpitations, Abdominal Pain, Calf Pain/Swelling, Chest Rash and Other PMH PMH Past Medical History: Yes Past Medical History: Anxiety, Arthritis, Asthma, Diabetes, Migraines, Hypertension and Kidney Stones Past Medical History Comment: MARCO PATTERSON , Past Surgical History: Yes Surgical History: , Cholecystectomy, Hysterectomy, Ortho Surgery and Other Family History History of Family Medical Conditions: Yes Family Medical History: Diabetes Mellitus, Cancer, [place], Coronary Artery Disease, Heart Failure and Hypertension Social History Does patient currently use any type of tobacco product: No Have you used tobacco products in the last 12 months: No Type of Tobacco Use: None Does any household member use tobacco: No Alcohol Use: None Do you use any recreational Drugs:: No Lives With: Family Lives Where: Home infectious screening In the last 2 months have you had wt loss of >10#?: NO Have you had fever, night sweats or hemotysis?: No Have you traveled outside the country in the last 6 months?: No Isolation: Standard ROS Review of Systems Constitutional: Diaphoresis Eyes: No Symptoms Reported ENTM: No Symptoms Reported Respiratoy: Short of Breath; negative Non-Productive Cough, Wheezing and Hemoptysis Cardiovascular: Chest Pain; negative Edema, Palpitations and Syncope Gastrointestinal/Abdominal: Nausea; negative Abdominal Pain and Vomiting Genitourinary: No Symptoms Reported Neurological: No Symptoms Reported Musculoskeletal: No Symptoms Reported Integumentary: See HPI Hematologic/Lymphatic: No Symptoms Reported Endocrine: No Symptoms Reported Psychiatric: No Symptoms Reported All Other Systems: Reviewed and Negative PE Vitals Vitals: Temperature 96.9 F Pulse Rate 82 Respiratory Rate 22 Blood Pressure [Right Arm] 108/63 Blood Pressure [Left Arm] 167/94 Blood Pressure 129/83 O2 Sat by Pulse Oximetry 99 General Limitations: No Limitations Head Head Exam: Normal Inspection Eyes Eye exam: Normal Appearance ENT ENT Exam: Normal Exam Chest Chest Inspection: Normal Inspection Respiratory Respiratory Exam: Normal Lung Sounds Bilat Respiratory Exam: Bilateral: Clear to Auscultation Cardiovascular Cardiovascular Exam: Regular Rate, Normal Rhythm and Normal Heart Sounds Abdominal Exam Abdominal Exam: Normal Inspection Extremities Extremities Exam: Normal Inspection Back Back Exam: Normal Inspection Neurologic Neurological Exam: Alert, Oriented X3, CN II-XII Intact and Normal Gait; negative Motor Sensory Deficit Psychiatric Psychiatric Exam: Normal Affect and Normal Mood Skin Skin Exam: Intact and Diaphoresis (improving) MDM Differential Diagnosis Differential Diagnosis: Angina, Aortic Dissection, CHF, Myocardial Infarction, Pneumonia, Pneumothorax and Pulmonary Embolus ROR Labs Reviewed Laboratory Results Reviewed?: Yes Result Diagrams: 09/16/19 15:52 09/16/19 15:52 Laboratory: WBC 7.4 X10^3/uL (3.6-10.0) 09/16/19 15:52 RBC 4.71 X10^6/uL (3.5-5.4) 09/16/19 15:52 Hgb 14.0 g/dL (12.0-16.0) 09/16/19 15:52 Hct 41.2 % (36.0-47.0) 09/16/19 15:52 MCV 87.5 fL (80.0-100.0) 09/16/19 15:52 MCH 29.8 pg (27.0-34.0) 09/16/19 15:52 MCHC 34.1 g/dL (33.0-35.0) 09/16/19 15:52 RDW 13.5 % (11.6-16.5) 09/16/19 15:52 Plt Count 346 X10^3/uL (150.0-450.0) 09/16/19 15:52 MPV 7.0 fL (7.4-11.0) L 09/16/19 15:52 Neut % (Auto) 59.8 % (42.0-75.0) 09/16/19 15:52 Lymph % (Auto) 31.9 % (21.0-51.0) 09/16/19 15:52 [place] % (Auto) 6.8 % (0.0-13.0) 09/16/19 15:52 Eos % (Auto) 0.6 % (0.9-2.9) L 09/16/19 15:52 Baso % (Auto) 0.9 % (0.2-1.0) 09/16/19 15:52 Neut # (Auto) 4.5 x10^3/uL (2.2-4.8) 09/16/19 15:52 Lymph # (Auto) 2.4 X10^3/uL (1.3-2.9) 09/16/19 15:52 [place] # (Auto) 0.5 x10^3/uL (0.3-0.8) 09/16/19 15:52 Eos # (Auto) 0.0 x10^3/uL (0.0-0.2) 09/16/19 15:52 Baso # (Auto) 0.1 X10^3/uL (0.0-0.1) 09/16/19 15:52 Absolute Nucleated RBC 0.1 /100WBC 09/16/19 15:52 PT 11.8 SECONDS (11.8-14.3) 09/16/19 15:52 INR Target Range - 09/16/19 15:52 INR 0.90 (0.8-1.3) 09/16/19 15:52 APTT 20.9 SECONDS (22.9-36.5) L 09/16/19 15:52 PTT Comment - 09/16/19 15:52 Sodium 137 mmol/L (136-145) 09/16/19 15:52 Corrected Sodium 141 mmol/L (136-145) 09/16/19 15:52 Potassium 3.3 mmol/L (3.5-5.1) L 09/16/19 15:52 Chloride 101 mmol/L (98-107) 09/16/19 15:52 Carbon Dioxide 26.1 mmol/L (21-32) 09/16/19 15:52 BUN 21 mg/dL (7-18) H 09/16/19 15:52 Creatinine 1.00 mg/dL (0.55-1.02) 09/16/19 15:52 Est GFR (MDRD) Af Amer > 60 (>60) 09/16/19 15:52 Est GFR (MDRD) Non-Af > 60 (>60) 09/16/19 15:52 Glucose 265 mg/dL (65-99) H 09/16/19 15:52 Calcium 9.1 mg/dL (8.5-10.1) 09/16/19 15:52 Corrected Calcium TNP 09/16/19 15:52 Total Bilirubin 0.20 mg/dL (0.2-1.0) 09/16/19 15:52 AST 11 Units/L (15-37) L 09/16/19 15:52 ALT 33 Units/L (12-78) 09/16/19 15:52 Alkaline Phosphatase 44 Units/L (46-116) L 09/16/19 15:52 Troponin I < 0.02 ng/mL (0-1.5) 09/16/19 15:52 Total Protein 7.3 g/dL (6.4-8.2) 09/16/19 15:52 Albumin 4.1 g/dL (3.4-5.0) 09/16/19 15:52 Globulin 3.2 g/dL (2.5-4.5) 09/16/19 15:52 Albumin/Globulin Ratio 1.3 Ratio (1.1-2.1) 09/16/19 15:52 Other Results Comments: HISTORY CHEST PAIN STUDY CHEST, 1 VIEW COMPARISON None TECHNIQUE Portable chest x-ray FINDINGS Heart size and mediastinal contours are normal. Lungs are clear as are the pleural spaces. No free air or pneumothorax. No acute bony abonormality. IMPRESSION No acute radiographic abnormalities of the chest. Electronically signed by: KAMARI BROWN (Sep 16, 2019 15:51:15) EKG Rate: 95 [place]: Normal Rhythm: PVCs Block: None Hypertrophy: LVH ST: Nonsp Opioid Opioid Risk Tool Age ([place] box if 16-45): No Total: 0 Total Score Risk Category: Low Risk Copyright: Ravinder MENDEZ predicting aberrant behaviors Diagnosis Discharge Problem: Chest pain Qualifiers: Chest pain type: unspecified Qualified Code(s): R07.9 - Chest pain, unspecified
--- NOTE | 2019-09-16 15:52 | RAD ---
HISTORYCHEST PAINSTUDYCHEST, 1 VIEWCOMPARISONNoneTECHNIQUEPortable chest x-rayFINDINGSHeart size and mediastinal contours are normal. Lungs are clear as are the pleural spaces. No free air or pneumothorax. No acute bony abonormality.IMPRESSIONNo acute radiographic abnormalities of the chest.Electronically signed by: KAMARI BROWN (Sep 16, 2019 15:51:15)
[2019-09-16] MEDS ORDERED: ASPIRIN 81 MG CHEWTAB ONE (15:53)
[2019-09-16 16:00] LABS: BASOPHILS # (AUTO) 0.1 X10^3/uL (0.0-0.1); BASOPHILS % (AUTO) 0.9 % (0.2-1.0); EOSINOPHILS % (AUTO) 0.6 % (0.9-2.9); HEMATOCRIT 41.2 % (36.0-47.0); LYMPHOCYTES # (AUTO) 2.4 X10^3/uL (1.3-2.9); LYMPHOCYTES % (AUTO) 31.9 % (21.0-51.0); MEAN CORPUSCULAR HEMOGLOBIN 29.8 pg (27.0-34.0); MEAN CORPUSCULAR HGB CONC 34.1 g/dL (33.0-35.0); MEAN CORPUSCULAR VOLUME 87.5 fL (80.0-100.0); MONOCYTES # (AUTO) 0.5 x10^3/uL (0.3-0.8); MONOCYTES % (AUTO) 6.8 % (0.0-13.0); NEUTROPHILS # (AUTO) 4.5 x10^3/uL (2.2-4.8); NEUTROPHILS % (AUTO) 59.8 % (42.0-75.0); PLATELET COUNT 346 X10^3/uL (150.0-450.0); RED BLOOD COUNT 4.71 X10^6/uL (3.5-5.4); RED CELL DISTRIBUTION WIDTH 13.5 % (11.6-16.5); WHITE BLOOD COUNT 7.4 X10^3/uL (3.6-10.0)
[2019-09-16] MEDS ORDERED: ASPIRIN 81 MG CHEWTAB PO SCH (16:00)
[2019-09-16 16:15] LABS: ALANINE AMINOTRANSFERASE 33 Units/L (12-78); ALBUMIN 4.1 g/dL (3.4-5.0); ALKALINE PHOSPHATASE 44 Units/L (46-116); ASPARTATE AMINO TRANSFERASE 11 Units/L (15-37); BLOOD UREA NITROGEN 21 mg/dL (7-18); CALCIUM 9.1 mg/dL (8.5-10.1); CARBON DIOXIDE 26.1 mmol/L (21-32); CHLORIDE 101 mmol/L (98-107); COR NA(FOR HYPERGLY) 141 mmol/L (136-145); SODIUM 137 mmol/L (136-145); TOTAL PROTEIN 7.3 g/dL (6.4-8.2); TROPONIN I < 0.02 ng/mL (0-1.5); eGFR NON BLACK RACES > 60 (>60)
[2019-09-16] MEDS ORDERED: POTASSIUM CHL 40 MEQ/NS 0.45% 500 ML IV PRN (18:24)
[2019-09-16] MEDS ORDERED: KLOR-CON PO PRN (18:24)
[2019-09-16] MEDS ORDERED: POTASSIUM CHL 60 MEQ/NS 0.45% 500 ML IV PRN (18:24)
[2019-09-16] MEDS ORDERED: MICRO K EXTEN CAP 10 MEQ PO PRN (18:24)
[2019-09-16] MEDS ORDERED: POTASSIUM CHLORIDE LIQ 20 MEQ UDC PO PRN (18:24)
[2019-09-16] MEDS ORDERED: K-RIDER 10 MEQ/NS 100 ML 10 MEQ/100 ML BAG IV PRN (18:24)
[2019-09-16] MEDS ORDERED: SNACK - Diabetic Appropriate PO SCH (20:00)
[2019-09-16] MEDS ORDERED: NITROSTAT SL PRN (20:27)
[2019-09-16] MEDS ORDERED: NS 500 ML IV 500 ML IV ONE (20:42)
[2019-09-16] MEDS ORDERED: IMIPRAMINE HCL 50 MG PO SCH (21:00)
[2019-09-16] MEDS: TOPIRAMATE 100 MG PO SCH (21:00)
[2019-09-16] MEDS ORDERED: PROVENTIL NEB TX 0.083% 2.5MG/ 3ML NEB PRN (21:00)
[2019-09-16] MEDS: K-DUR TAB 20 MEQ PO PRN (21:02)
[2019-09-16] MEDS: NEURONTIN CAP 400 MG PO SCH (21:02)
[2019-09-16] MEDS: PROTONIX TAB 40 MG PO SCH (21:02)
[2019-09-16] MEDS: HYDROCHLOROTHIAZIDE 25 MG TAB PO SCH (21:02)
[2019-09-16] MEDS: MAGNESIUM SULFATE 1 GRAM/100 mL PREMIX 1 GM/100 ML BAG IV PRN ×2 (21:03→22:30)
[2019-09-16] MEDS: HumuLIN R SUBCUT PRN (21:05)
[2019-09-16 22:57] LABS: CKMB % 4.8 % (<4); CREATINE KINASE 21 Units/L (26-192); CREATINE KINASE MB < 1.0 ng/mL (0-4.0); TROPONIN I < 0.02 ng/mL (0-1.5)
[2019-09-17] MEDS: K-DUR TAB 20 MEQ PO PRN ×3 (00:55→12:39)
[2019-09-17] MEDS: HumuLIN R SUBCUT PRN (06:06)
[2019-09-17] MEDS: NEURONTIN CAP 400 MG PO SCH ×2 (06:06→12:39)
[2019-09-17 06:08] LABS: BASOPHILS # (AUTO) 0.1 X10^3/uL (0.0-0.1); EOSINOPHILS # (AUTO) 0.1 x10^3/uL (0.0-0.2); EOSINOPHILS % (AUTO) 1.5 % (0.9-2.9); HEMATOCRIT 39.4 % (36.0-47.0); HEMOGLOBIN 13.3 g/dL (12.0-16.0); LYMPHOCYTES % (AUTO) 57.2 % (21.0-51.0); MEAN CORPUSCULAR HEMOGLOBIN 29.8 pg (27.0-34.0); MEAN CORPUSCULAR HGB CONC 33.9 g/dL (33.0-35.0); MEAN CORPUSCULAR VOLUME 88.1 fL (80.0-100.0); MEAN PLATELET VOLUME 7.3 fL (7.4-11.0); MONOCYTES # (AUTO) 0.7 x10^3/uL (0.3-0.8); MONOCYTES % (AUTO) 7.7 % (0.0-13.0); NEUTROPHILS # (AUTO) 2.8 x10^3/uL (2.2-4.8); NEUTROPHILS % (AUTO) 32.6 % (42.0-75.0); PLATELET COUNT 321 X10^3/uL (150.0-450.0); RED BLOOD COUNT 4.47 X10^6/uL (3.5-5.4); RED CELL DISTRIBUTION WIDTH 13.8 % (11.6-16.5); WHITE BLOOD COUNT 8.7 X10^3/uL (3.6-10.0)
[2019-09-17 06:14] LABS: BLOOD UREA NITROGEN 18 mg/dL (7-18); CALCIUM 8.2 mg/dL (8.5-10.1); CHLORIDE 103 mmol/L (98-107); COR NA(FOR HYPERGLY) 140 mmol/L (136-145); CREATININE 0.91 mg/dL (0.55-1.02); MAGNESIUM 1.9 mg/dL (1.7-2.9); SODIUM 139 mmol/L (136-145); eGFR NON BLACK RACES > 60 (>60)
[2019-09-17 07:05] LABS: CREATINE KINASE 20 Units/L (26-192); CREATINE KINASE MB < 1.0 ng/mL (0-4.0); TROPONIN I < 0.02 ng/mL (0-1.5)
[2019-09-17] MEDS ORDERED: ZESTRIL TAB 20 MG ONE (07:45)
[2019-09-17] MEDS: TOPIRAMATE 100 MG PO SCH (08:25)
[2019-09-17] MEDS: PROTONIX TAB 40 MG PO SCH (08:26)
[2019-09-17] MEDS: HYDROCHLOROTHIAZIDE 25 MG TAB PO SCH (08:26)
[2019-09-17] MEDS ORDERED: TRICOR TAB 145 MG PO SCH (09:00)
[2019-09-17] MEDS ORDERED: ASPIRIN EC 81 MG PO SCH (09:00)
[2019-09-17] MEDS ORDERED: ZESTRIL TAB 20 MG PO SCH (09:00)
[2019-09-17] MEDS ORDERED: NEBIVOLOL PO SCH (09:00)
[2019-09-17] MEDS ORDERED: TOPAMAX TAB 100 MG PO SCH (09:00)
[2019-09-17] MEDS ORDERED: SINGULAIR TAB 10 MG PO SCH (09:00)
[2019-09-17 09:16] LABS: CHOL/HDL RATIO 6.7 (0.0-5.0); HEMOGLOBIN A1C 8.9 %
[2019-09-17] MEDS ORDERED: MAG-OX TAB ONE (10:18)
[2019-09-17] MEDS ORDERED: MAG-OX TAB PO SCH (11:00)
[2019-09-17] MEDS ORDERED: HEPARIN SODIUM IN D5W 25,000 UNITS/500 ML BAG IV PRN (11:52)
[2019-09-17] MEDS ORDERED: PREDNISONE TAB 10 MG PO SCH (12:00)
[2019-09-17] MEDS ORDERED: PREDNISONE TAB 10 MG PO ONE (12:43)
[2019-09-17] MEDS ORDERED: HEPARIN SODIUM INJ 5000 UNITS IVP ONE (13:15)
[2019-09-17] MEDS ORDERED: HEPARIN SODIUM INJ 5000 UNITS ONE (13:22)
[2019-09-17] MEDS ORDERED: HEPARIN SODIUM IN D5W 25,000 UNITS/500 ML BAG IV ONE (13:22)
--- NOTE | 2019-09-17 13:35 | DR.SSS ---
SHORT STAY SUMMARY Admission Date Date of Admission: 09/16/19 Discharge Date Discharge Date: 09/17/19 Admission Diagnoses Admission Diagnoses: Chest pain rule out ACS Type 2 DM HTN HLD Sarcoidosis Discharge Diagnoses Discharge Diagnoses: Unstable angina Hypertension Type 2 DM Sarcoidosis HLD Chief Complaint Chief Complaint: chest pain History of Present Illness History of Present Illness: Ms. Erickson is a 49y/o female with a PMH of Type 2 DM, HTN, HLD and sarcoidosis presented with chest pain that happened on exertion at home. Patient reports walking up the stairs and having substernal chest pain with radiation to her neck, associated with SOB, diaphoresis and nausea. Patient also felt dizzy so remained still. The pain did not subside so patient was brought to the ED. During this episode, patient's BP was 78/32. Patient reports having these chest pain episodes for the last 2 months, have been getting worse and happening every day. She has them at rest and with exertion. She reports strong FH of cardiac disease, Mother in 40s with MS. She has never had any cardiac work-up. Her last severe episode was a week ago while she was driving back from [place]. She also had 2 episodes this morning, resolved on it's own in a few minutes. ED work-up: - EKG and troponin x 1 normal - CXR: negative - Vitals stable Past Medical History Past Medical History: Anxiety, Arthritis, Asthma, Diabetes, Migraines, Hypertension and Kidney Stones Additional Medical History: Sarcoidosis Past Surgical History Surgical History: , Cholecystectomy, Hysterectomy and Ortho Surgery Allergies Allergies Allergy/AdvReac Type Severity Reaction Status Date / Time amoxicillin Allergy Verified 09/16/19 14:59 cephalexin [From Keflex] Allergy Verified 09/16/19 14:59 ibuprofen [From Motrin] Allergy Verified 09/16/19 14:59 naproxen [From Aleve] Allergy Verified 09/16/19 14:59 Penicillins Allergy Verified 09/16/19 14:59 Sulfa (Sulfonamide Allergy Verified 09/16/19 14:59 Antibiotics) [SULFA] Medications Home Medications: amoxicillin Allergy (Verified 09/16/19 14:59) cephalexin [From Keflex] Allergy (Verified 09/16/19 14:59) ibuprofen [From Motrin] Allergy (Verified 09/16/19 14:59) naproxen [From Aleve] Allergy (Verified 09/16/19 14:59) Penicillins Allergy (Verified 09/16/19 14:59) Sulfa (Sulfonamide Antibiotics) [SULFA] Allergy (Verified 09/16/19 14:59) CONTINUE taking the following medications celecoxib 100 mg PO DAILY 09/16/19 [History] meclizine 25 mg PO HS 09/16/19 [History] montelukast [Singulair] 10 mg PO DAILY 09/16/19 [History] tramadol [Ultram] 50 mg PO TID PRN 09/16/19 [History] cetirizine [Zyrtec] 10 mg PO DAILY 09/17/19 [History] diphenhydramine HCl [Benadryl] 25 mg PO QHS PRN 09/17/19 [History] fluticasone propion-salmeterol [Advair Diskus] 1 inh INHALATION BID 09/17/19 [History] fluticasone propion-salmeterol [Advair Diskus] 2 ea INHALATION DAILY 09/17/19 [History] metoclopramide HCl [Reglan] 10 mg PO Q6H 09/17/19 [History] ondansetron HCl [Zofran] 4 mg PO Q6H 09/17/19 [History] prednisone 10 mg PO BID 09/17/19 [History] topiramate 100 mg PO DAILY 09/17/19 [History] Family History Family Medical History: Diabetes Mellitus, Cancer, [place], Coronary Artery Disease, Heart Failure and Hypertension Social History Does patient currently use any type of tobacco product: No Have you used tobacco products in the last 12 months: No Type of Tobacco Use: None Does any household member use tobacco: No Alcohol Use: None Drug Use: None Review of Systems Constitutional: Sweats Eyes: No Symptoms Reported ENT: No Symptoms Reported Respiratory: Shortness of Breath Cardiovascular: Chest Pain and Light Headedness Gastrointestinal: Nausea Genitourinary: No Symptoms Reported Musculoskeletal: No Symptoms Reported Skin: No Symptoms Reported Neurological: No Symptoms Reported Physical Exam Vital Signs: Last Vital Signs Temp 97.7 F 09/17/19 08:00 Pulse 87 09/17/19 08:00 Resp 18 09/17/19 08:00 BP 102/76 09/17/19 08:00 Pulse Ox 96 09/17/19 08:00 Oriented: Normal Respiratory: Clear Throughout Cardiovascular: Normal Auscultation: Bowel Sounds: Normal Palpation: Normal Tenderness: Normal Skin: Normal Musculoskeletal: Normal Psychiatric: Normal Mood Description: Calm Affect: Normal Speech Pattern: Clear and Appropriate Labs Labs: Laboratory Last Values WBC 8.7 X10^3/uL (3.6-10.0) 09/17/19 05:35 RBC 4.47 X10^6/uL (3.5-5.4) 09/17/19 05:35 Hgb 13.3 g/dL (12.0-16.0) 09/17/19 05:35 Hct 39.4 % (36.0-47.0) 09/17/19 05:35 MCV 88.1 fL (80.0-100.0) 09/17/19 05:35 MCH 29.8 pg (27.0-34.0) 09/17/19 05:35 MCHC 33.9 g/dL (33.0-35.0) 09/17/19 05:35 RDW 13.8 % (11.6-16.5) 09/17/19 05:35 Plt Count 321 X10^3/uL (150.0-450.0) 09/17/19 05:35 MPV 7.3 fL (7.4-11.0) L 09/17/19 05:35 Neut % (Auto) 32.6 % (42.0-75.0) L 09/17/19 05:35 Lymph % (Auto) 57.2 % (21.0-51.0) H 09/17/19 05:35 [place] % (Auto) 7.7 % (0.0-13.0) 09/17/19 05:35 Eos % (Auto) 1.5 % (0.9-2.9) 09/17/19 05:35 Baso % (Auto) 1.0 % (0.2-1.0) 09/17/19 05:35 Neut # (Auto) 2.8 x10^3/uL (2.2-4.8) 09/17/19 05:35 Lymph # (Auto) 5.0 X10^3/uL (1.3-2.9) H 09/17/19 05:35 [place] # (Auto) 0.7 x10^3/uL (0.3-0.8) 09/17/19 05:35 Eos # (Auto) 0.1 x10^3/uL (0.0-0.2) 09/17/19 05:35 Baso # (Auto) 0.1 X10^3/uL (0.0-0.1) 09/17/19 05:35 Absolute Nucleated RBC 0.1 /100WBC 09/17/19 05:35 PT 12.7 SECONDS (11.8-14.3) 09/17/19 12:35 INR Target Range - 09/17/19 12:35 INR 0.99 (0.8-1.3) 09/17/19 12:35 APTT 21.7 SECONDS (22.9-36.5) L 09/17/19 12:35 PTT Comment - 09/17/19 12:35 Sodium 139 mmol/L (136-145) 09/17/19 05:35 Corrected Sodium 140 mmol/L (136-145) 09/17/19 05:35 Potassium 3.5 mmol/L (3.5-5.1) 09/17/19 05:35 Chloride 103 mmol/L (98-107) 09/17/19 05:35 Carbon Dioxide 29.0 mmol/L (21-32) 09/17/19 05:35 BUN 18 mg/dL (7-18) 09/17/19 05:35 Creatinine 0.91 mg/dL (0.55-1.02) 09/17/19 05:35 Est GFR (MDRD) Af Amer > 60 (>60) 09/17/19 05:35 Est GFR (MDRD) Non-Af > 60 (>60) 09/17/19 05:35 Glucose 156 mg/dL (65-99) H 09/17/19 05:35 POC Glucose (mg/dL) 142 mg/dL (65-99) H 09/17/19 12:01 Hemoglobin A1c 8.9 % 09/17/19 05:35 Calcium 8.2 mg/dL (8.5-10.1) L 09/17/19 05:35 Corrected Calcium TNP 09/16/19 15:52 Magnesium 1.9 mg/dL (1.7-2.9) 09/17/19 05:35 Total Bilirubin 0.20 mg/dL (0.2-1.0) 09/16/19 15:52 AST 11 Units/L (15-37) L 09/16/19 15:52 ALT 33 Units/L (12-78) 09/16/19 15:52 Alkaline Phosphatase 44 Units/L (46-116) L 09/16/19 15:52 Creatine Kinase 20 Units/L (26-192) L 09/17/19 05:35 CK-MB (CK-2) < 1.0 ng/mL (0-4.0) 09/17/19 05:35 CK/CKMB % Calc 5.0 % (<4) 09/17/19 05:35 Troponin I < 0.02 ng/mL (0-1.5) 09/17/19 05:35 Total Protein 7.3 g/dL (6.4-8.2) 09/16/19 15:52 Albumin 4.1 g/dL (3.4-5.0) 09/16/19 15:52 Globulin 3.2 g/dL (2.5-4.5) 09/16/19 15:52 Albumin/Globulin Ratio 1.3 Ratio (1.1-2.1) 09/16/19 15:52 Triglycerides 394 mg/dL (0-150) H 09/17/19 05:35 Cholesterol 220 mg/dL (0-200) H 09/17/19 05:35 LDL Cholesterol, Calc 108 mg/dL (0-100) H 09/17/19 05:35 HDL Cholesterol 33 mg/dL (40-60) L 09/17/19 05:35 Cholesterol/HDL Ratio 6.7 (0.0-5.0) H 09/17/19 05:35 Assessment/Plan 1: Chest pain concerning for unstable angina - Trop x 3 (-), EKG with no ST changes - typical angina, no prev work-up - continue asa, lisinopril, fenofibrates and bystolic 2: Hypokalemia-replace as per protocol 3: HTN 4: HLD 5: Sarcoidosis - on prednisone Hospital Course Hospital Course: Patient admitted with chest pain for ACS rule out. Her troponins x 3 negative with no acute EKG changes. Patient had 2 episodes overnight. She reports typical anginal symptoms that have been worsening. She has these episodes at rest and with exertion. Risk factors include DM, HTN, HLD, Familg hx. Patient high risk for cardiac event and will benefit from [facility]. Discussed this with patient and agreed to be transferred to [facility] in [facility]. We will start heparin drip while patient is being transferred. Replace K as per protocol. Discharge Medications Discharge Medications: Home Medication List celecoxib 100 mg PO DAILY 09/16/19 [History] meclizine 25 mg PO HS 09/16/19 [History] montelukast [Singulair] 10 mg PO DAILY 09/16/19 [History] tramadol [Ultram] 50 mg PO TID PRN 09/16/19 [History] cetirizine [Zyrtec] 10 mg PO DAILY 09/17/19 [History] diphenhydramine HCl [Benadryl] 25 mg PO QHS PRN 09/17/19 [History] fluticasone propion-salmeterol [Advair Diskus] 1 inh INHALATION BID 09/17/19 [History] fluticasone propion-salmeterol [Advair Diskus] 2 ea INHALATION DAILY 09/17/19 [History] metoclopramide HCl [Reglan] 10 mg PO Q6H 09/17/19 [History] ondansetron HCl [Zofran] 4 mg PO Q6H 09/17/19 [History] prednisone 10 mg PO BID 09/17/19 [History] topiramate 100 mg PO DAILY 09/17/19 [History] Prescriptions: Discharge Disposition Discharge Disposition: [facility]
[2019-09-17 13:40] VITALS: BP 127/86
== END 2019-09-17 13:25 | disposition home or self-care (01) ==
LOC: MED/SURG 14:57 → ER 14:57 → MED/SURG 17:53
PROVIDERS: ADMIT Internal Medicine; ATTEND Internal Medicine
DX: Z79.899 Other long term (current) drug therapy; R42 Dizziness and giddiness; E78.2 Mixed hyperlipidemia; R07.89 Other chest pain; I10 Essential (primary) hypertension; D86.9 Sarcoidosis, unspecified; R06.02 Shortness of breath; F41.8 Other specified anxiety disorders; E11.65 Type 2 diabetes mellitus with hyperglycemia; I20.0 Unstable angina
CPT/HCPCS: 36415; 71010; 71045; 80048; 80053; 80061; 82550; 82553; 83036; 83735; 84132; 84484; 85025; 85610; 85730; 93005; 94760; 96365; 96372; 96374; 99284; A4216; A4222; G0378; J1644; J1815; J3475; J7040; J7512